=== PATIENT | female | born 1975 | race Caucasian/White ===

== ENCOUNTER 2017-02-13 08:43 | Emergency (ER) | payer BC, OTHER ==
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
--- NOTE | 2017-02-13 10:34 | XR ---
EXAMINATION TYPE: XR mandible complete DATE OF EXAM: 02/13/2017 9:53 AM COMPARISON: NONE HISTORY: Pain contusion TECHNIQUE: 5 view mandible FINDINGS: Temporomandibular joints appear normal. No acute fractures are evident. The apex appears in tact. Angles of the jaw appear intact. IMPRESSION: 1. Normal 5 view mandible.
--- NOTE | 2017-02-13 10:35 | XR ---
EXAMINATION TYPE: XR nasal bone DATE OF EXAM: 02/13/2017 9:53 AM COMPARISON: NONE HISTORY: Contusion pain and abrasion nose TECHNIQUE: 3 view nasal bone FINDINGS: No acute fractures are evident. Maxillary spine appears intact. Paranasal sinuses appear cl ear. Pleura the orbits appear normal. IMPRESSION: 1. Normal nasal bones
[2017-02-13 11:10] VITALS: RESP 16; TEMP 98.4
[2017-02-13 11:30] VITALS: BP 141/66; PULSE 60
== END 2017-02-13 11:29 | disposition home or self-care (01) ==
LOC: EC 08:43
DX: S00.33XA Contusion of nose, initial encounter (principal); S00.83XA Contusion of other part of head, initial encounter; Z87.891 Personal history of nicotine dependence; Z79.899 Other long term (current) drug therapy; Z88.6 Allergy status to analgesic agent; Z88.5 Allergy status to narcotic agent; Y08.89XA Assault by other specified means, initial encounter
CPT/HCPCS: 70110; 70160; 99283

== ENCOUNTER 2017-03-18 13:59 | Emergency (ER) | payer BC ==
[2017-03-18] MEDS ORDERED: ACETAMINOPHEN IV (For NPO) 1,000 MG in EMPTY BAG 1 BAG IVPB STA (14:20)
--- NOTE | 2017-03-18 14:21 | ED ---
General Adult HPI - General Chief complaint: Altered Mental Status Stated complaint: Altered LOC Time Seen by Provider: 03/18/17 14:01 Source: patient, EMS, RN notes reviewed Mode of arrival: EMS Limitations: altered mental status - History of Present Illness Initial comments: Patient is a 42-year-old female presenting to the emergency department by EMS. Patient is a very poor historian and offering little information. Patient is tearful however denies being anxious. Patient will not state why she is here. Patient does complain of leg pain. There was a reported fall, unknown if any injury. Further history is limited. - Related Data Home Medications Medication Instructions Recorded Confirmed Vitamin C/Biotin [Hair, Skin and 1 tab PO DAILY 02/13/17 03/18/17 Nails] Previous Rx's Medication Instructions Recorded Amoxicillin 500 mg PO Q8H #30 capsule 03/18/17 levETIRAcetam [Keppra] 500 mg PO Q12HR #60 tab 03/18/17 Allergies Allergy/AdvReac Type Severity Reaction Status Date / Time aspirin AdvReac Severe BLOODY NOSE Verified 03/18/17 15:07 codeine AdvReac Swelling Verified 03/18/17 15:07 Review of Systems ROS Statement: Those systems with pertinent positive or pertinent negative responses have been documented in the HPI. ROS Other: All systems not noted in ROS Statement are negative. Limitations: ROS unobtainable due to patients medical condition Past Medical History Past Medical History: Thyroid Disorder History of Any Multi-Drug Resistant Organisms: None Reported Past Surgical History: No Surgical Hx Reported Past Psychological History: No Psychological Hx Reported Smoking Status: Former smoker Past Alcohol Use History: None Reported Past Drug Use History: None Reported General Exam Limitations: altered mental status General appearance: alert, anxious Head exam: Present: atraumatic Eye exam: Present: normal appearance, PERRL, EOMI ENT exam: Present: normal oropharynx Neck exam: Present: normal inspection. Absent: tenderness, meningismus Respiratory exam: Present: normal lung sounds bilaterally Cardiovascular Exam: Present: regular rate, normal rhythm GI/Abdominal exam: Present: soft. Absent: distended, tenderness, guarding, rebound, rigid Extremities exam: Present: normal inspection, tenderness (Diffuse bilateral legs ). Absent: pedal edema Back exam: Present: normal inspection. Absent: tenderness Neurological exam: Present: alert, other (Tearful. Difficulty following commands. No focal deficits.) Expanded Cranial nerves: EOM's Intact: Normal Motor strength exam: RUE: 5, LUE: 5, RLE: 5, LLE: 5 Psychiatric exam: Present: anxious Skin exam: Present: normal color. Absent: rash Course Vital Signs 03/18/17 03/18/17 14:05 15:20 Temperature 102.5 F H 101.7 F H Pulse Rate 99 70 Respiratory 18 16 Rate Blood Pressure 113/59 119/75 O2 Sat by Pulse 95 95 Oximetry EKG Findings - EKG Comments: EKG Findings:: Normal sinus rhythm 95. [place] 168. QRS 98. QT 352. QTC 442. Normal axis. Normal QRS. No acute ST change. Medical Decision Making - Medical Decision Making Patient reevaluated and significantly improved. Patient is alert and oriented 3. Still no meningismus. Patient states she had a seizure earlier. Patient was unaware of having a fever however does admit to having sinus problems for several days. Patient complains of sinus congestion and feels that is why she has a fever. Patient states he feels much better and is comfortable with discharge. Patient was updated on results and need for follow-up. Patient states she was recently taken off of her Keppra because she has not had a seizure a long period of time. Patient states she used to be on Keppra for seizures. This will be restarted. - Lab Data Result diagrams: 03/18/17 14:43 03/18/17 14:43 Lab Results 03/18/17 03/18/17 03/18/17 Range/Units 14:28 14:43 14:43 WBC 11.0 H (3.8-10.6) k/uL RBC 3.96 (3.80-5.40) m/uL Hgb 12.1 (11.4-16.0) gm/dL Hct 35.3 (34.0-46.0) % MCV 89.2 (80.0-100.0) fL MCH 30.6 (25.0-35.0) pg MCHC 34.3 (31.0-37.0) g/dL RDW 15.6 H (11.5-15.5) % Plt Count 211 (150-450) k/uL Neutrophils % 89 % Lymphocytes % 7 % Monocytes % 3 % Eosinophils % 1 % Basophils % 0 % Neutrophils # 9.7 H (1.3-7.7) k/uL Lymphocytes # 0.7 L (1.0-4.8) k/uL Monocytes # 0.3 (0-1.0) k/uL Eosinophils # 0.1 (0-0.7) k/uL Basophils # 0.0 (0-0.2) k/uL Sodium (137-145) mmol/L Potassium (3.5-5.1) mmol/L Chloride (98-107) mmol/L Carbon Dioxide (22-30) mmol/L Anion Gap mmol/L BUN (7-17) mg/dL Creatinine (0.52-1.04) mg/dL Est GFR (MDRD) Af Amer (>60 ml/min/1.73 sqM) Est GFR (MDRD) Non-Af (>60 ml/min/1.73 sqM) Glucose (74-99) mg/dL Plasma Lactic Acid [place] (0.7-2.0) mmol/L Calcium (8.4-10.2) mg/dL Total Bilirubin (0.2-1.3) mg/dL AST (14-36) U/L ALT (9-52) U/L Alkaline Phosphatase (38-126) U/L Total Creatine Kinase 776 H (30-135) U/L CK-MB (CK-2) 1.9 (0.0-2.4) ng/mL CK-MB (CK-2) Rel Index 0.2 Troponin I <0.012 (0.000-0.034) ng/mL Total Protein (6.3-8.2) g/dL Albumin (3.5-5.0) g/dL Urine Color Yellow Urine Appearance Clear (Clear) Urine pH 5.5 (5.0-8.0) Ur Specific [place] 1.021 (1.001-1.035) Urine Protein Trace H (Negative) Urine Glucose (UA) Negative (Negative) Urine Ketones Negative (Negative) Urine Blood Small H (Negative) Urine Nitrite Negative (Negative) Urine Bilirubin Negative (Negative) Urine Urobilinogen <2.0 (<2.0) mg/dL Ur Leukocyte Esterase Small H (Negative) Urine RBC 3 (0-5) /hpf Urine WBC <1 (0-5) /hpf Ur Squamous Epith Cells 1 (0-4) /hpf Urine Bacteria Rare H (None) /hpf Urine Mucus Rare H (None) /hpf Influenza Type A RNA (Not Detectd) Influenza Type B (PCR) (Not Detectd) 03/18/17 03/18/17 03/18/17 Range/Units 14:43 14:43 15:29 WBC (3.8-10.6) k/uL RBC (3.80-5.40) m/uL Hgb (11.4-16.0) gm/dL Hct (34.0-46.0) % MCV (80.0-100.0) fL MCH (25.0-35.0) pg MCHC (31.0-37.0) g/dL RDW (11.5-15.5) % Plt Count (150-450) k/uL Neutrophils % % Lymphocytes % % Monocytes % % Eosinophils % % Basophils % % Neutrophils # (1.3-7.7) k/uL Lymphocytes # (1.0-4.8) k/uL Monocytes # (0-1.0) k/uL Eosinophils # (0-0.7) k/uL Basophils # (0-0.2) k/uL Sodium 141 (137-145) mmol/L Potassium 3.6 (3.5-5.1) mmol/L Chloride 103 (98-107) mmol/L Carbon Dioxide 24 (22-30) mmol/L Anion Gap 14 mmol/L BUN 10 (7-17) mg/dL Creatinine 1.11 H (0.52-1.04) mg/dL Est GFR (MDRD) Af Amer >60 (>60 ml/min/1.73 sqM) Est GFR (MDRD) Non-Af 54 (>60 ml/min/1.73 sqM) Glucose 98 (74-99) mg/dL Plasma Lactic Acid [place] 1.4 (0.7-2.0) mmol/L Calcium 9.0 (8.4-10.2) mg/dL Total Bilirubin 1.1 (0.2-1.3) mg/dL AST 49 H (14-36) U/L ALT 32 (9-52) U/L Alkaline Phosphatase 86 (38-126) U/L Total Creatine Kinase (30-135) U/L CK-MB (CK-2) (0.0-2.4) ng/mL CK-MB (CK-2) Rel Index Troponin I (0.000-0.034) ng/mL Total Protein 8.4 H (6.3-8.2) g/dL Albumin 4.7 (3.5-5.0) g/dL Urine Color Urine Appearance (Clear) Urine pH (5.0-8.0) Ur Specific [place] (1.001-1.035) Urine Protein (Negative) Urine Glucose (UA) (Negative) Urine Ketones (Negative) Urine Blood (Negative) Urine Nitrite (Negative) Urine Bilirubin (Negative) Urine Urobilinogen (<2.0) mg/dL Ur Leukocyte Esterase (Negative) Urine RBC (0-5) /hpf Urine WBC (0-5) /hpf Ur Squamous Epith Cells (0-4) /hpf Urine Bacteria (None) /hpf Urine Mucus (None) /hpf Influenza Type A RNA Not Detected (Not Detectd) Influenza Type B (PCR) Not Detected (Not Detectd) - Radiology Data Radiology results: report reviewed (Computed tomography scan of the brain shows no acute process. Computed tomography scan the cervical spine shows mild degenerative change.), image reviewed (Chest x-ray shows no acute process) Disposition Clinical Impression: Acute sinusitis, Seizure Disposition: HOME SELF-CARE Condition: Stable Instructions: Sinusitis (ED), Recurrent Seizures in Adults (ED) Additional Instructions: Please follow-up with neurology and primary care physician in the beginning of the week. Return for change in mental status, increased seizures, fevers, difficulty breathing, worsening or changing symptoms or other concerns. Prescriptions: Amoxicillin 500 mg PO Q8H #30 capsule levETIRAcetam [Keppra] 500 mg PO Q12HR #60 tab Referrals: Ebony Perales MD [STAFF PHYSICIAN] - 1-2 days Reanna Nava MD [STAFF PHYSICIAN] - 1-2 days Time of Disposition: 16:00
[2017-03-18] MEDS: SODIUM CHLORIDE 0.9% 500 ML IV SCH ×2 (14:34→14:35)
[2017-03-18 14:53] LABS: Appearance,Urine Clear (Clear); Bacteria,Urine Rare /hpf; Bilirubin,Urine Negative (Negative); Glucose,Urine (UA) Negative (Negative); Ketones,Urine Negative (Negative); Leukocyte Esterase,Urine Small (Negative); Mucus,Urine Rare /hpf; Nitrite,Urine Negative (Negative); PH, Urine 5.5 (5.0-8.0); Particle Count 3773; Protein,Urine Trace (Negative); RBC,Urine 3 /hpf (0-5); Specific Gravity,Urine 1.021 (1.001-1.035); Squamous Epithelial Cell,Urine 1 /hpf (0-4); UA Billing (MACRO vs. MICRO) MICRO; Urobilinogen,Urine <2.0 mg/dL (<2.0); WBC,Urine <1 /hpf (0-5)
[2017-03-18 14:55] LABS: Basophils % (A) 0 %; CH 31.2; CHCM 35.2; Eosinophils # (A) 0.1 k/uL (0-0.7); Eosinophils % (A) 1 %; HCT 35.3 % (34.0-46.0); HDW 2.92; HGB 12.1 gm/dL (11.4-16.0); Luc # (Auto) 0.08; Luc % (Auto) 1; Lymphocytes # (A) 0.7 k/uL (1.0-4.8); Lymphocytes % (A) 7 %; MCH 30.6 pg (25.0-35.0); MCHC 34.3 g/dL (31.0-37.0); MCV 89.2 fL (80.0-100.0); Mean Platelet Volume 6.9; Monocytes # (A) 0.3 k/uL (0-1.0); Monocytes % (A) 3 %; Neutrophils # (A) 9.7 k/uL (1.3-7.7); Neutrophils % (A) 89 %; RBC 3.96 m/uL (3.80-5.40); RDW 15.6 % (11.5-15.5); WBC (Perox) 11.21
[2017-03-18 15:04] LABS: ALT 32 U/L (9-52); AST 49 U/L (14-36); Alkaline Phosphatase 86 U/L (38-126); Anion Gap 14 mmol/L; Blood Urea Nitrogen 10 mg/dL (7-17); Carbon Dioxide 24 mmol/L (22-30); Chloride 103 mmol/L (98-107); Glucose 98 mg/dL (74-99); Non-African American GFR(MDRD) 54 (>60 ml/min/1.73 sqM); Potassium 3.6 mmol/L (3.5-5.1); Sodium 141 mmol/L (137-145); Total Bilirubin 1.1 mg/dL (0.2-1.3); Total Protein 8.4 g/dL (6.3-8.2)
[2017-03-18 15:13] LABS: Creatine Kinase 776 U/L (30-135)
[2017-03-18 15:26] LABS: Creatine Kinase MB 1.9 ng/mL (0.0-2.4); Troponin I <0.012 ng/mL (0.000-0.034)
--- NOTE | 2017-03-18 15:35 | CT ---
EXAMINATION TYPE: CT brain cspine wo con DATE OF EXAM: 03/18/2017 3:02 PM COMPARISON: 12/02/2015 HISTORY: Fall, possible seizure. Hx seizures. CT DLP: 1400.6 mGycm, Automated exposure control for dose reduction was used. CONTRAST: Patient injected with 0 mL of Omnipaque 300. CT of the brain is performed utilizing 3 mm thick sections through the posterior fossa and 3 mm thick sections through the remaining calvarium. Study is performed within 24 hours of arrival to the hospital. No abnormal hyperdensity is present to suggest an acute intracranial hemorrhage. No mass lesion is evident. No acute infarcts are evident. Ventricles and sulci are appropriate for the patient age. Paranasal sinuses and mastoid air cells within the [id number] are clear. IMPRESSIONS: 1. Normal CT brain. CT cervical spine. COMPARISON: None CT of the cervical spine is performed in the axial plane at 2 mm thick sections. Reconstructed image s in the coronal, and sagittal plane are reviewed on the computer. No acute fractures are evident. Vertebral body alignment is normal. Posterior endplate spurring is noted C3-4 C4-5 C5-6. No spinal ca nal stenosis is present. Some uncovertebral joint hypertrophy is foraminal narrowing present C4-5 C5- 6. Disc heights are preserved. Vertebral body heights are preserved. No spinal canal stenosis is evident. No neural foraminal stenosis is evident. IMPRESSIONS: 1. Mild degenerative changes cervical spine.
[2017-03-18] MEDS ORDERED: levETIRAcetam 500 MG TAB PO STA (15:48)
--- NOTE | 2017-03-18 15:57 | XR ---
EXAMINATION TYPE: XR chest 2V DATE OF EXAM: 03/18/2017 3:06 PM COMPARISON: 11/18/2009 INDICATION: Fever TECHNIQUE: Single frontal view of the chest is obtained. FINDINGS: The heart size is normal. The pulmonary vasculature is normal. The lungs are clear. Degree of inspiration is slightly limited. IMPRESSION: 1. No acute pulmonary process.
[2017-03-18 16:16] VITALS: BP 111/65; PULSE 72; RESP 18; TEMP 101
== END 2017-03-18 16:10 | disposition home or self-care (01) ==
LOC: EC 13:59
DX: J01.90 Acute sinusitis, unspecified (principal); R56.9 Unspecified convulsions; M47.812 Spondylosis without myelopathy or radiculopathy, cervical region; Z79.899 Other long term (current) drug therapy; Z88.5 Allergy status to narcotic agent; Z88.6 Allergy status to analgesic agent; Z87.891 Personal history of nicotine dependence
CPT/HCPCS: 99285 ×2; 96365 ×2; 36415; 93005; 80053; 82550; 82553; 83605; 84484; 85025; 81001; 87040; 87086; 87502; 71020; 72125; 70450; J0131

== ENCOUNTER 2017-05-29 06:49 | Emergency (ER) | payer BC ==
[2017-05-29] MEDS ORDERED: diphenhydrAMINE 50 MG/ML 1 ML VIAL IVP STA (07:33)
[2017-05-29] MEDS ORDERED: ONDANSETRON 4 MG/2 ML VIAL IVP STA (07:33)
[2017-05-29] MEDS ORDERED: KETOROLAC 60 MG/2 ML VIAL IVP STA (07:33)
[2017-05-29] MEDS ORDERED: SODIUM CHLORIDE 0.9% 1,000 ML IV ONE (07:34)
--- NOTE | 2017-05-29 07:53 | ED ---
General Adult HPI - General Chief complaint: Headache Stated complaint: Headache x 2 days Time Seen by Provider: 05/29/17 07:00 Source: patient, RN notes reviewed Mode of arrival: ambulatory Limitations: no limitations - History of Present Illness Initial comments: This is a 42-year-old female presents emergency Department complaining of a headache which started yesterday at noon. Patient states that her headaches in the past that are similar. Patient states she is also mildly nauseated and she has some photophobia. Patient denies any vomiting. Patient denies any recent fever chills per patient denies any neck pain or stiffness. Patient states this headache is similar to that when she's had in the past. Patient denies any lightheadedness dizziness or near syncopal episode. Patient denies any numbness or weakness. Patient denies any chest pain palpitations difficulty breathing. Patient denies any abdominal pain. - Related Data Home Medications Medication Instructions Recorded Confirmed Vitamin C/Biotin [Hair, Skin and 1 tab PO BID 05/29/17 05/29/17 Nails] Allergies Allergy/AdvReac Type Severity Reaction Status Date / Time aspirin AdvReac Severe BLOODY NOSE Verified 05/29/17 08:16 codeine AdvReac Swelling Verified 05/29/17 08:16 Review of Systems ROS Statement: Those systems with pertinent positive or pertinent negative responses have been documented in the HPI. ROS Other: All systems not noted in ROS Statement are negative. Past Medical History Past Medical History: Seizure Disorder, Thyroid Disorder History of Any Multi-Drug Resistant Organisms: None Reported Past Surgical History: No Surgical Hx Reported Past Psychological History: No Psychological Hx Reported Smoking Status: Former smoker Past Alcohol Use History: None Reported Past Drug Use History: None Reported General Exam - General Exam Comments Initial Comments: GENERAL: Patient is well-developed and well-nourished. Patient is nontoxic and well- hydrated and is in mild distress. ENT: Neck is soft and supple. No significant lymphadenopathy is noted. Oropharynx is clear. Moist mucous membranes. Neck has full range of motion without eliciting any pain. EYES: The sclera were anicteric and conjunctiva were pink and moist. Extraocular movements were intact and pupils were equal round and reactive to light. Eyelids were unremarkable. PULMONARY: Unlabored respirations. Good breath sounds bilaterally. No audible rales rhonchi or wheezing was noted. CARDIOVASCULAR: There is a regular rate and rhythm without any murmurs gallops or rubs. ABDOMEN: Soft and nontender with normal bowel sounds. SKIN: Skin is clear with no lesions or rashes and otherwise unremarkable. NEUROLOGIC: Patient is alert and oriented x3. Cranial nerves II through XII are grossly intact. Motor and sensory are also intact. Normal speech, volume and content. Symmetrical smile. MUSCULOSKELETAL: Normal extremities with adequate strength and full range of motion. No lower extremity swelling or edema. No calf tenderness. LYMPHATICS: No significant lymphadenopathy is noted PSYCHIATRIC: Normal psychiatric evaluation. Normal interpersonal interactions appears functionally intact in deals appropriately with others. No signs of depression. Limitations: no limitations Course Vital Signs 05/29/17 05/29/17 06:53 07:59 Temperature 98.4 F Pulse Rate 59 L 66 Respiratory 18 18 Rate Blood Pressure 122/78 125/78 O2 Sat by Pulse 100 98 Oximetry Medical Decision Making - Medical Decision Making Patient received Toradol Zofran and Benadryl the ER for headache she states improved her headache and she is only a 45 out of 10 at this time. When I walked back in the room to reevaluate the patient she was sleeping. Patient has had 4 CT scans for brain and one MRI in the last 2 years. Disposition Clinical Impression: Headache Disposition: HOME SELF-CARE Instructions: Acute Headache (ED) Referrals: None,Stated [Primary Care Provider] - 1-2 days Time of Disposition: 08:20
[2017-05-29 08:27] VITALS: BP 109/73; PULSE 60; RESP 15; TEMP 97.6
== END 2017-05-29 08:56 | disposition home or self-care (01) ==
LOC: EC 06:49
DX: R51 Headache (principal); H53.149 Visual discomfort, unspecified; R11.0 Nausea; Z87.891 Personal history of nicotine dependence; Z79.899 Other long term (current) drug therapy; Z88.5 Allergy status to narcotic agent; Z88.6 Allergy status to analgesic agent
CPT/HCPCS: 99283; 96374; 96375 ×2; 96361; J1200; J2405; J1885

== ENCOUNTER 2017-06-19 07:26 | Emergency (ER) | payer BC ==
[2017-06-19] MEDS ORDERED: ONDANSETRON 4 MG/2 ML VIAL IVP STA (07:55)
[2017-06-19] MEDS ORDERED: SODIUM CHLORIDE 0.9% 1,000 ML IV STA ×2 (07:55)
[2017-06-19] MEDS ORDERED: KETOROLAC 30 MG/ML 1 ML VIAL IVP STA (07:56)
--- NOTE | 2017-06-19 08:00 | ED ---
General Adult HPI - General Chief complaint: Recheck/Abnormal Lab/Rx Stated complaint: posss Syncope Time Seen by Provider: 06/19/17 07:50 Source: EMS Mode of arrival: EMS Limitations: no limitations - History of Present Illness Initial comments: This 42-year-old white female presents by EMS after she apparently almost passed out at work. She states that she cannot remember exactly what happened and may have passed out but is not sure. She apparently started work at 5 AM. Approximately one hour later her symptoms started. She states that she has a history of seizure disorder but did not have a seizure that she is aware of. 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 She denies any problems with eating or drinking recently but is unsure if she is dehydrated. She denies any possibility of as she's had a tubal ligation. She denies any fevers or chills. She has had some mild dizziness and mild headache and mild nausea. She denies any abdominal pain. No other complaints or modifying factors. - Related Data Home Medications Medication Instructions Recorded Confirmed Vitamin C/Biotin [Hair, Skin and 1 tab PO BID 05/29/17 06/19/17 Nails] Allergies Allergy/AdvReac Type Severity Reaction Status Date / Time aspirin AdvReac Severe BLOODY NOSE Verified 06/19/17 08:45 codeine AdvReac Swelling Verified 06/19/17 08:45 Review of Systems ROS Statement: Those systems with pertinent positive or pertinent negative responses have been documented in the HPI. ROS Other: All systems not noted in ROS Statement are negative. Past Medical History Past Medical History: Seizure Disorder, Thyroid Disorder History of Any Multi-Drug Resistant Organisms: None Reported Past Surgical History: No Surgical Hx Reported Past Psychological History: No Psychological Hx Reported Smoking Status: Former smoker Past Alcohol Use History: None Reported Past Drug Use History: None Reported General Exam - General Exam Comments Initial Comments: GENERAL: The patient is well nourished and well hydrated. VITAL SIGNS: Heart rate, blood pressure, respiratory rate reviewed as recorded in nurse's notes. EYES: Pupils are round and reactive. Extraocular movements are intact. No conjunctival / lid redness or swelling. ENT: No external evidence of injury, swelling, or ecchymosis. Airway is patent. Throat is clear. NECK: Nontender. No swelling or evidence of injury. No subcutaneous emphysema. Trachea is midline. No thyroid mass. HEART: Regular rate and rhythm. Good peripheral pulses. LUNGS/CHEST: Breath sounds clear and equal bilaterally. No rales, rhonchi, or wheezes. No ecchymosis, subcutaneous emphysema, or tenderness. ABDOMEN: Abdomen soft without tenderness. No palpable masses or organomegaly. No peritoneal signs. No abdominal wall swelling or ecchymosis. EXTREMITIES: No extremity tenderness. Normal muscle tone and function. No thoracolumbar tenderness. NEUROLOGIC: Sensation is grossly intact. Cranial nerve exam reveals face is symmetrical, tongue is midline, speech is clear. SKIN: No abrasions or ecchymosis is noted. No induration or masses noted. PSYCHIATRIC: Alert and oriented. Appropriate behavior and judgment. Limitations: no limitations Course Vital Signs 06/19/17 06/19/17 06/19/17 07:31 07:35 09:30 Temperature 100 F H Pulse Rate 70 66 64 Respiratory 20 18 20 Rate Blood Pressure 113/71 113/71 104/73 O2 Sat by Pulse 99 97 98 Oximetry 06/19/17 06/19/17 10:13 10:25 Temperature 98 F 98 F Pulse Rate 60 60 Respiratory 18 18 Rate Blood Pressure 104/62 104/62 O2 Sat by Pulse 97 97 Oximetry Medical Decision Making - Medical Decision Making The patient was seen and examined. All diagnostics were reviewed. She did receive an IV with ample IV fluid hydration, Toradol, and Zofran. EKG shows a normal sinus rhythm with no acute ST-T wave changes identified. The DE intervals 182, QRS duration is 86, and the QTc interval is 418. The ventricular rate is 60. The patient's labs are reviewed and it does show that she has some mild anemia. Overall, the exact reason of her symptoms are not definitively determine but it is felt as though she likely has a degree of dehydration and some mild heat exhaustion. She feels much improved after the fluids and medications stating that she feels normal at this time. It is felt as though she is stable for discharge and leaves in no distress. She will be given a work note off for the remainder of this shift but she can return tomorrow. She is instructed to increase her fluid hydration. She leaves in no identifiable distress. - Lab Data Result diagrams: 06/19/17 08:06 06/19/17 08:06 Lab Results 06/19/17 06/19/17 Range/Units 08:06 08:06 WBC 6.1 (3.8-10.6) k/uL RBC 3.67 L (3.80-5.40) m/uL Hgb 11.3 L (11.4-16.0) gm/dL Hct 32.6 L (34.0-46.0) % MCV 89.0 (80.0-100.0) fL MCH 30.9 (25.0-35.0) pg MCHC 34.8 (31.0-37.0) g/dL RDW 13.7 (11.5-15.5) % Plt Count 216 (150-450) k/uL Neutrophils % 60 % Lymphocytes % 31 % Monocytes % 4 % Eosinophils % 3 % Basophils % 1 % Neutrophils # 3.7 (1.3-7.7) k/uL Lymphocytes # 1.9 (1.0-4.8) k/uL Monocytes # 0.2 (0-1.0) k/uL Eosinophils # 0.2 (0-0.7) k/uL Basophils # 0.0 (0-0.2) k/uL Sodium 140 (137-145) mmol/L Potassium 4.0 (3.5-5.1) mmol/L Chloride 107 (98-107) mmol/L Carbon Dioxide 24 (22-30) mmol/L Anion Gap 9 mmol/L BUN 10 (7-17) mg/dL Creatinine 0.96 (0.52-1.04) mg/dL Est GFR (MDRD) Af Amer >60 (>60 ml/min/1.73 sqM) Est GFR (MDRD) Non-Af >60 (>60 ml/min/1.73 sqM) Glucose 81 (74-99) mg/dL Calcium 8.8 (8.4-10.2) mg/dL Total Bilirubin 0.5 (0.2-1.3) mg/dL AST 40 H (14-36) U/L ALT 34 (9-52) U/L Alkaline Phosphatase 62 (38-126) U/L Total Protein 7.7 (6.3-8.2) g/dL Albumin 4.2 (3.5-5.0) g/dL Disposition Clinical Impression: Syncope, Heat exhaustion, Anemia, Dehydration Disposition: HOME SELF-CARE Condition: Good Instructions: Dehydration (ED), Heat Exhaustion (ED), Syncope (ED), Anemia (ED) Referrals: Dorinda Pierce MD [Primary Care Provider] - 1-2 days Time of Disposition: 10:07
[2017-06-19 08:16] LABS: Basophils % (A) 1 %; CH 30.9; CHCM 34.9; Eosinophils # (A) 0.2 k/uL (0-0.7); Eosinophils % (A) 3 %; HCT 32.6 % (34.0-46.0); HDW 2.99; HGB 11.3 gm/dL (11.4-16.0); Luc % (Auto) 2; Lymphocytes # (A) 1.9 k/uL (1.0-4.8); Lymphocytes % (A) 31 %; MCH 30.9 pg (25.0-35.0); MCHC 34.8 g/dL (31.0-37.0); Mean Platelet Volume 7.4; Monocytes # (A) 0.2 k/uL (0-1.0); Monocytes % (A) 4 %; Neutrophils # (A) 3.7 k/uL (1.3-7.7); Neutrophils % (A) 60 %; RBC 3.67 m/uL (3.80-5.40); RDW 13.7 % (11.5-15.5); WBC 6.1 k/uL (3.8-10.6); WBC (Perox) 6.28
[2017-06-19 08:32] LABS: ALT 34 U/L (9-52); AST 40 U/L (14-36); Alkaline Phosphatase 62 U/L (38-126); Anion Gap 9 mmol/L; Blood Urea Nitrogen 10 mg/dL (7-17); Calcium 8.8 mg/dL (8.4-10.2); Carbon Dioxide 24 mmol/L (22-30); Chloride 107 mmol/L (98-107); Glucose 81 mg/dL (74-99); Non-African American GFR(MDRD) >60 (>60 ml/min/1.73 sqM); Sodium 140 mmol/L (137-145); Total Bilirubin 0.5 mg/dL (0.2-1.3); Total Protein 7.7 g/dL (6.3-8.2)
[2017-06-19 10:15] VITALS: BP 104/62; PULSE 60; RESP 18; TEMP 98
== END 2017-06-19 10:41 | disposition home or self-care (01) ==
LOC: EC 07:26
DX: R55 Syncope and collapse (principal); E86.0 Dehydration; D64.9 Anemia, unspecified; Z87.891 Personal history of nicotine dependence; Z79.899 Other long term (current) drug therapy; Z88.5 Allergy status to narcotic agent; Z88.6 Allergy status to analgesic agent; X30.XXXA Exposure to excessive natural heat, initial encounter
CPT/HCPCS: 36415; 93005; 80053; 85025; 99284; 96374; 96375; 96361 ×2; J2405; J1885

== ENCOUNTER 2017-10-08 06:18 | Emergency (ER) | payer BC ==
[2017-10-08 06:24] VITALS: RESP 16
[2017-10-08] MEDS ORDERED: ONDANSETRON 4 MG/2 ML VIAL IVP STA (06:30)
[2017-10-08] MEDS ORDERED: KETOROLAC 30 MG/ML 1 ML VIAL IVP STA (06:30)
--- NOTE | 2017-10-08 06:48 | ED ---
Headache HPI - General Source: patient, RN notes reviewed Mode of arrival: ambulatory Limitations: no limitations - History of Present Illness MD Complaint: headache <Elmer Wyatt - Last Filed: 10/08/17 06:45> <Jb Viera - Last Filed: 10/08/17 08:05> - General Chief Complaint: Headache Stated Complaint: migraine Time Seen by Provider: 10/08/17 06:24 - History of Present Illness Initial Comments: This is a 42-year-old female history of migraine headaches and states she had the onset of her headache this morning or 1 AM. She states it was about 8/10 severity. She states she took some Motrin get somewhat better but then after going to work he got worse again. So but again at this time she has some nausea she states is bitemporal not demonstrating any complaints of fevers chills sweats earaches sore throat or rhinorrhea. No focal deficits to her upper or lower extremities she does have some photophobia. (Elmer Wyatt) - Related Data Home Medications Medication Instructions Recorded Confirmed No Known Home Medications [No 10/08/17 10/08/17 Known Home Medications] Allergies Allergy/AdvReac Type Severity Reaction Status Date / Time aspirin AdvReac Severe BLOODY Verified 10/08/17 07:23 NOSE/Itching codeine AdvReac Swelling/It Verified 10/08/17 07:23 afshan Review of Systems ROS Other: All systems not noted in ROS Statement are negative. <Elmer Wyatt - Last Filed: 10/08/17 06:45> ROS Other: All systems not noted in ROS Statement are negative. <Jb Viera - Last Filed: 10/08/17 08:05> ROS Statement: Those systems with pertinent positive or pertinent negative responses have been documented in the HPI. Past Medical History Past Medical History: Seizure Disorder, Thyroid Disorder History of Any Multi-Drug Resistant Organisms: None Reported Past Surgical History: No Surgical Hx Reported Past Psychological History: No Psychological Hx Reported Smoking Status: Never smoker Past Alcohol Use History: None Reported Past Drug Use History: None Reported <Elmer Wyatt - Last Filed: 10/08/17 06:45> General Exam Limitations: no limitations General appearance: alert, in no apparent distress Head exam: Present: atraumatic, normocephalic, normal inspection, other (Some mild times palpation over the temporal scalp no step-off or crepitation) Eye exam: Present: normal appearance, PERRL, EOMI. Absent: scleral icterus, conjunctival injection, periorbital swelling ENT exam: Present: normal exam, mucous membranes moist Neck exam: Present: normal inspection, full ROM. Absent: tenderness, meningismus, lymphadenopathy Respiratory exam: Present: normal lung sounds bilaterally. Absent: respiratory distress, wheezes, rales, rhonchi, stridor Cardiovascular Exam: Present: regular rate, normal rhythm, normal heart sounds. Absent: systolic murmur, diastolic murmur, rubs, gallop, clicks GI/Abdominal exam: Present: normal bowel sounds. Absent: distended, tenderness , guarding, rebound, rigid Extremities exam: Present: normal inspection, full ROM, normal capillary refill. Absent: tenderness, pedal edema, joint swelling, calf tenderness Back exam: Present: normal inspection Neurological exam: Present: alert, oriented X3, CN II-XII intact Psychiatric exam: Present: normal affect, normal mood Skin exam: Present: warm, dry, intact, normal color. Absent: rash <Elmer Wyatt - Last Filed: 10/08/17 06:45> <Jb Viera - Last Filed: 10/08/17 08:05> - General Exam Comments Initial Comments: This is a well-developed well-nourished awake alert oriented x 3 female (Elmer Wyatt) Course <Elmer Wyatt - Last Filed: 10/08/17 06:45> <Jb Viera - Last Filed: 10/08/17 08:05> Vital Signs 10/08/17 06:19 Temperature 99.2 F Pulse Rate 75 Respiratory 16 Rate Blood Pressure 111/72 O2 Sat by Pulse 100 Oximetry - Reevaluation(s) Reevaluation #1: 10/08/17 06:47 The patient was noted have a slightly elevated temperature on initial presentation she states this is her normal temperature. (Elmer Wyatt) Reevaluation #2: 10/08/17 06:47 The patient's care will be endorsed to Dr. Viera who will make the final disposition (Elmer Wyatt) Medical Decision Making <Elmer Wyatt - Last Filed: 10/08/17 06:45> <Jb Viera - Last Filed: 10/08/17 08:05> - Medical Decision Making Patient reexamined and feeling much better. Patient states she does have a history of similar headaches previously with multiple evaluations. Patient has had MRI and multiple previous brain CTs. Patient is comfortable with discharge home. (Jb Viera) Disposition <Elmer Wyatt - Last Filed: 10/08/17 06:45> Time of Disposition: 08:05 <Jb Viera - Last Filed: 10/08/17 08:05> Clinical Impression: Headache Disposition: HOME SELF-CARE Condition: Stable Instructions: Acute Headache (ED) Additional Instructions: Please follow-up with your doctor in the next day or 2 for recheck. Return for weakness, uncontrolled vomiting, visual changes, fevers, worsening or change in symptoms or other concerns. Referrals: Dorinda Pierce MD [Primary Care Provider] - 1-2 days
[2017-10-08 08:16] VITALS: BP 104/76; PULSE 63; TEMP 97.9
== END 2017-10-08 08:16 | disposition home or self-care (01) ==
LOC: EC 06:18
DX: R51 Headache (principal); Z86.69 Personal history of other diseases of the nervous system and sense organs; Z88.6 Allergy status to analgesic agent; Z88.5 Allergy status to narcotic agent
CPT/HCPCS: 99283 ×2; 96374 ×2; 96375 ×2; J2405; J1885

== ENCOUNTER → 2018-05-14 | Outpatient (CLI) | payer BC ==
[2018-05-14 16:40] LABS: Appearance,Urine Cloudy (Clear); Bacteria,Urine Occasional /hpf; Bilirubin,Urine Negative (Negative); Blood,Urine Negative (Negative); Color,Urine Light Yellow; Glucose,Urine (UA) Negative (Negative); Ketones,Urine Negative (Negative); Leukocyte Esterase,Urine Large (Negative); Mucus,Urine Rare /hpf; Nitrite,Urine Negative (Negative); PH, Urine 5.5 (5.0-8.0); Protein,Urine Negative (Negative); RBC,Urine 4 /hpf (0-5); Specific Gravity,Urine 1.016 (1.001-1.035); Squamous Epithelial Cell,Urine 3 /hpf (0-4); Urobilinogen,Urine <2.0 mg/dL (<2.0); WBC,Urine 31 /hpf (0-5)
[2018-05-14 16:42] LABS: Basophils # (A) 0.1 k/uL (0-0.2); Basophils % (A) 1 %; Eosinophils # (A) 0.4 k/uL (0-0.7); Eosinophils % (A) 6 %; HCT 28.4 % (34.0-46.0); HGB 9.3 gm/dL (11.4-16.0); Lymphocytes # (A) 2.1 k/uL (1.0-4.8); Lymphocytes % (A) 30 %; MCH 28.3 pg (25.0-35.0); MCHC 32.6 g/dL (31.0-37.0); MCV 86.8 fL (80.0-100.0); Mean Platelet Volume 7.2; Monocytes # (A) 0.3 k/uL (0-1.0); Monocytes % (A) 5 %; Neutrophils # (A) 3.9 k/uL (1.3-7.7); Neutrophils % (A) 56 %; Platelet Count 225 k/uL (150-450); RBC 3.27 m/uL (3.80-5.40); RDW 15.2 % (11.5-15.5)
[2018-05-14 16:56] LABS: ALT 34 U/L (9-52); AST 48 U/L (14-36); Albumin 4.5 g/dL (3.5-5.0); Alkaline Phosphatase 63 U/L (38-126); Anion Gap 7 mmol/L; Blood Urea Nitrogen 14 mg/dL (7-17); Calcium 9.6 mg/dL (8.4-10.2); Carbon Dioxide 28 mmol/L (22-30); Chloride 105 mmol/L (98-107); Cholesterol 234 mg/dL (<200); Glucose 82 mg/dL (74-99); HDL Cholesterol 48 mg/dL (40-60); LDL Cholesterol,Calculated 130 mg/dL (0-99); Potassium 4.1 mmol/L (3.5-5.1); Sodium 140 mmol/L (137-145); Total Bilirubin 0.4 mg/dL (0.2-1.3); Total Protein 8.1 g/dL (6.3-8.2); Triglycerides 278 mg/dL (<150)
[2018-05-14 17:13] LABS: HCG,Quantitative Serum <2.4 mIU/mL
[2018-05-14 22:33] LABS: T4, Free (Free Thyroxine) 0.14 ng/dL (0.78-2.19)
[2018-05-15 01:30] LABS: Hemoglobin A1C 5.4 % (4.0-6.0)
[2018-05-15 02:13] LABS: Iron Saturation 7.35 (12.00-45.00)
[2018-05-15 02:22] LABS: Progesterone <0.2 ng/mL
[2018-05-15 03:11] LABS: HIV AB P24 Non-Reactive (Non-Reactive); HIV P24 AG Non-Reactive (Non-Reactive)
[2018-05-15 03:28] LABS: Hepatitis C IgG Antibody Non-Reactive (Non-Reactive)
== END | disposition home or self-care (01) ==
LOC: LABWHC1 16:02
PROVIDERS: ATTEND Family Medicine
DX: Z00.00 Encounter for general adult medical examination without abnormal findings (principal); N93.9 Abnormal uterine and vaginal bleeding, unspecified; Z11.3 Encounter for screening for infections with a predominantly sexual mode of transmission
CPT/HCPCS: 36415; 80053; 80061; 81001; 82672; 82728; 83001; 83002; 83036; 83540; 83550; 84144; 84146; 84439; 84443; 84702; 85025; 86780; 86803; 87340; 87390

== ENCOUNTER 2018-10-09 03:21 | Emergency (ER) | payer BC ==
[2018-10-09 03:35] VITALS: TEMP 98.4
[2018-10-09] MEDS ORDERED: SODIUM CHLORIDE 0.9% 1,000 ML IV STA (03:54)
--- NOTE | 2018-10-09 03:57 | ED ---
General Adult HPI - General Chief complaint: Seizure Stated complaint: fell yesterday after seizure Time Seen by Provider: 10/09/18 03:42 Source: patient, RN notes reviewed, old records reviewed Mode of arrival: ambulatory Limitations: no limitations - History of Present Illness Initial comments: 33-year-old female history seizure disorder presents for evaluation of headache after seizure that occurred yesterday. Patient states she had a generalized seizure uncertain of the duration. She did fall out of bed and hit her forehead on a dresser. She has recurrent seizure disorder and was previously on Keppra although her neurologist has taken off this medication at this point. She is presenting because she does not feel well, she has some mild nausea. Mild headache. She states she does have symptoms similar to this after her seizures however they don't last this long. Patient denies any focal numbness or weakness. Denies vision changes. Denies chest pain. Denies cough or URI symptoms. Denies dysuria. - Related Data Home Medications Medication Instructions Recorded Confirmed Ferrous Sulfate [Feosol] 325 mg PO DAILY 10/09/18 10/09/18 Levothyroxine Sodium [Synthroid] 100 mcg PO DAILY 10/09/18 10/09/18 Previous Rx's Medication Instructions Recorded Sulfamethox-Tmp 800-160Mg [Bactrim 1 tab PO Q12HR #20 tab 10/09/18 DS 800-160 mg] levETIRAcetam [Keppra] 500 mg PO Q12HR #30 tab 10/09/18 Allergies Allergy/AdvReac Type Severity Reaction Status Date / Time aspirin AdvReac Severe BLOODY Verified 10/08/17 07:23 NOSE/Itching codeine AdvReac Swelling/It Verified 10/08/17 07:23 afshan Review of Systems ROS Statement: Those systems with pertinent positive or pertinent negative responses have been documented in the HPI. ROS Other: All systems not noted in ROS Statement are negative. Past Medical History Past Medical History: Seizure Disorder, Thyroid Disorder History of Any Multi-Drug Resistant Organisms: None Reported Past Surgical History: Cholecystectomy Past Psychological History: No Psychological Hx Reported Smoking Status: Never smoker Past Alcohol Use History: None Reported Past Drug Use History: None Reported General Exam Limitations: no limitations General appearance: alert, in no apparent distress Head exam: Present: normocephalic. Absent: atraumatic (Mild soft tissue swelling of the forehead, no ecchymosis) Eye exam: Present: normal appearance, PERRL, EOMI ENT exam: Present: normal exam Neck exam: Present: normal inspection. Absent: tenderness, meningismus Respiratory exam: Present: normal lung sounds bilaterally. Absent: respiratory distress Cardiovascular Exam: Present: regular rate, normal rhythm GI/Abdominal exam: Present: soft. Absent: distended, tenderness Extremities exam: Present: normal inspection, normal capillary refill. Absent: pedal edema Back exam: Present: normal inspection, full ROM Neurological exam: Present: alert, oriented X3, CN II-XII intact. Absent: motor sensory deficit Psychiatric exam: Present: normal affect, normal mood Skin exam: Present: warm, dry, intact. Absent: cyanosis, diaphoretic Course Vital Signs 10/09/18 10/09/18 10/09/18 03:29 04:18 05:18 Temperature 98.4 F Pulse Rate 76 66 61 Respiratory 20 18 18 Rate Blood Pressure 119/80 106/70 100/65 O2 Sat by Pulse 98 100 100 Oximetry EKG Findings - EKG Comments: EKG Findings:: EKG: Sinus rhythm with sinus arrhythmia, rate of 63, MS interval 170, QRS duration 82, QTC 397, no ST segment elevation or depression Medical Decision Making - Medical Decision Making 43-year-old female presenting with seizure yesterday and head trauma. Head CT is obtained, negative for intracranial hemorrhage or mass effect. CBC is within normal limits, CMP also within normal limits. Urinalysis does show urinary tract infection and nitrate positive with 15 white cells and rare bacteria. Patient will be treated for urinary tract infection. She will also be started on Keppra as she was previously taking, she will follow-up with her neurologist. - Lab Data Result diagrams: 10/09/18 04:09 10/09/18 04:09 Lab Results 10/09/18 10/09/18 10/09/18 Range/Units 04:09 04:09 04:09 WBC 7.0 (3.8-10.6) k/uL RBC 4.27 (3.80-5.40) m/uL Hgb 12.3 (11.4-16.0) gm/dL Hct 37.3 (34.0-46.0) % MCV 87.4 (80.0-100.0) fL MCH 28.8 (25.0-35.0) pg MCHC 33.0 (31.0-37.0) g/dL RDW 13.9 (11.5-15.5) % Plt Count 193 (150-450) k/uL Neutrophils % 65 % Lymphocytes % 24 % Monocytes % 6 % Eosinophils % 2 % Basophils % 1 % Neutrophils # 4.6 (1.3-7.7) k/uL Lymphocytes # 1.7 (1.0-4.8) k/uL Monocytes # 0.4 (0-1.0) k/uL Eosinophils # 0.1 (0-0.7) k/uL Basophils # 0.1 (0-0.2) k/uL Sodium 139 (137-145) mmol/L Potassium 4.3 (3.5-5.1) mmol/L Chloride 110 H (98-107) mmol/L Carbon Dioxide 20 L (22-30) mmol/L Anion Gap 9 mmol/L BUN 13 (7-17) mg/dL Creatinine 0.67 (0.52-1.04) mg/dL Est GFR (CKD-EPI)AfAm >90 (>60 ml/min/1.73 sqM) Est GFR (CKD-EPI)NonAf >90 (>60 ml/min/1.73 sqM) Glucose 97 (74-99) mg/dL Calcium 9.2 (8.4-10.2) mg/dL Total Bilirubin 0.6 (0.2-1.3) mg/dL AST 23 (14-36) U/L ALT 20 (9-52) U/L Alkaline Phosphatase 57 (38-126) U/L Total Protein 7.4 (6.3-8.2) g/dL Albumin 3.9 (3.5-5.0) g/dL Urine Color Yellow Urine Appearance Cloudy H (Clear) Urine pH 5.5 (5.0-8.0) Ur Specific [place] 1.016 (1.001-1.035) Urine Protein Negative (Negative) Urine Glucose (UA) Negative (Negative) Urine Ketones Negative (Negative) Urine Blood Trace H (Negative) Urine Nitrite Positive H (Negative) Urine Bilirubin Negative (Negative) Urine Urobilinogen <2.0 (<2.0) mg/dL Ur Leukocyte Esterase Small H (Negative) Urine RBC 3 (0-5) /hpf Urine WBC 15 H (0-5) /hpf Ur Squamous Epith Cells 11 H (0-4) /hpf Urine Bacteria Many H (None) /hpf Hyaline Casts 3 H (0-2) /lpf Urine Mucus Rare H (None) /hpf Disposition Clinical Impression: Generalized seizure, UTI (urinary tract infection) Disposition: HOME SELF-CARE Condition: Good Instructions: Recurrent Seizures in Adults (ED), Urinary Tract Infection in Women (ED) Prescriptions: levETIRAcetam [Keppra] 500 mg PO Q12HR #30 tab Sulfamethox-Tmp 800-160Mg [Bactrim DS 800-160 mg] 1 tab PO Q12HR #20 tab Is patient prescribed a controlled substance at d/c from ED?: No Referrals: Dorinda Pierce MD [Primary Care Provider] - 1-2 days Rolanda Borrego MD [STAFF PHYSICIAN] - 1-2 days Time of Disposition: 06:02
[2018-10-09 04:19] VITALS: RESP 18
[2018-10-09 04:37] LABS: ALT 20 U/L (9-52); AST 23 U/L (14-36); Albumin 3.9 g/dL (3.5-5.0); Alkaline Phosphatase 57 U/L (38-126); Anion Gap 9 mmol/L; Blood Urea Nitrogen 13 mg/dL (7-17); Calcium 9.2 mg/dL (8.4-10.2); Carbon Dioxide 20 mmol/L (22-30); Chloride 110 mmol/L (98-107); Glucose 97 mg/dL (74-99); Potassium 4.3 mmol/L (3.5-5.1); Sodium 139 mmol/L (137-145); Total Bilirubin 0.6 mg/dL (0.2-1.3); Total Protein 7.4 g/dL (6.3-8.2)
--- NOTE | 2018-10-09 04:47 | CT ---
EXAMINATION TYPE: CT brain wo con DATE OF EXAM: 10/09/2018 COMPARISON: 03/18/2017 HISTORY: seizure CT DLP: 1040.4 mGycm. Automated Exposure Control for Dose Reduction was Utilized. TECHNIQUE: CT scan of the head is performed without contrast. FINDINGS: Ventricles and sulci appear normal. There is no mass effect nor midline shift. There is no sign of intracranial hemorrhage. Calvarium is intact. IMPRESSION: Negative CT scan of the brain. No change.
[2018-10-09 04:52] LABS: Basophils # (A) 0.1 k/uL (0-0.2); Basophils % (A) 1 %; Eosinophils # (A) 0.1 k/uL (0-0.7); Eosinophils % (A) 2 %; HCT 37.3 % (34.0-46.0); HGB 12.3 gm/dL (11.4-16.0); Lymphocytes # (A) 1.7 k/uL (1.0-4.8); Lymphocytes % (A) 24 %; MCH 28.8 pg (25.0-35.0); MCV 87.4 fL (80.0-100.0); Mean Platelet Volume 7.4; Monocytes # (A) 0.4 k/uL (0-1.0); Monocytes % (A) 6 %; Neutrophils # (A) 4.6 k/uL (1.3-7.7); Neutrophils % (A) 65 %; Platelet Count 193 k/uL (150-450); RBC 4.27 m/uL (3.80-5.40); RDW 13.9 % (11.5-15.5)
[2018-10-09 05:18] VITALS: BP 100/65; PULSE 61
[2018-10-09 05:53] LABS: Appearance,Urine Cloudy (Clear); Bacteria,Urine Many /hpf; Bilirubin,Urine Negative (Negative); Blood,Urine Trace (Negative); Color,Urine Yellow; Glucose,Urine (UA) Negative (Negative); Hyaline Casts,Urine 3 /lpf (0-2); Ketones,Urine Negative (Negative); Leukocyte Esterase,Urine Small (Negative); Mucus,Urine Rare /hpf; Nitrite,Urine Positive (Negative); PH, Urine 5.5 (5.0-8.0); Protein,Urine Negative (Negative); RBC,Urine 3 /hpf (0-5); Specific Gravity,Urine 1.016 (1.001-1.035); Squamous Epithelial Cell,Urine 11 /hpf (0-4); Urobilinogen,Urine <2.0 mg/dL (<2.0); WBC,Urine 15 /hpf (0-5)
== END 2018-10-09 06:11 | disposition home or self-care (01) ==
LOC: EC 03:21
DX: G40.409 Other generalized epilepsy and epileptic syndromes, not intractable, without status epilepticus (principal); N39.0 Urinary tract infection, site not specified; E07.9 Disorder of thyroid, unspecified; Z79.899 Other long term (current) drug therapy; Z88.6 Allergy status to analgesic agent; Z88.5 Allergy status to narcotic agent
CPT/HCPCS: 36415; 70450; 80053; 81001; 85025; 93005; 96360; 96361; 99285

== ENCOUNTER 2019-06-21 21:05 | Emergency (ER) | payer BC ==
[2019-06-21 21:11] VITALS: RESP 18
[2019-06-21] MEDS ORDERED: KETOROLAC 30 MG/ML 1 ML VIAL IM STA (22:53)
--- NOTE | 2019-06-21 22:53 | ED ---
Upper Extremity HPI - General Chief Complaint: Extremity Injury, Upper Stated Complaint: Arm pain Time Seen by Provider: 06/21/19 21:43 Source: patient Mode of arrival: ambulatory Limitations: no limitations - History of Present Illness Initial Comments: Patient is a 44-year-old female presents the emergency department today for evaluation of 3 weeks of right-sided shoulder pain. Patient reports she has to do repetitive tasks at work and has developed progressively worsening right- sided shoulder pain and reports over the past couple days it seems to be worse at her shoulder feels stiff. Patient has not tried any Tylenol Motrin ice or heat. She reports she just fine to be a gnawing and dealing with a however she became concerned because it's persisting. Patient has continued to go to work daily and continue to have repetitive tasks despite the discomfort. - Related Data Home Medications Medication Instructions Recorded Confirmed Levothyroxine Sodium [Synthroid] 100 mcg PO DAILY 10/09/18 06/21/19 Previous Rx's Medication Instructions Recorded Gabapentin [Neurontin] 100 mg PO TID #30 cap 06/21/19 Ibuprofen [Motrin] 600 mg PO Q8HR #30 tab 06/21/19 Allergies Allergy/AdvReac Type Severity Reaction Status Date / Time aspirin AdvReac Severe BLOODY Verified 06/21/19 21:27 NOSE/Itching codeine AdvReac Swelling/It Verified 06/21/19 21:27 afshan Review of Systems ROS Statement: Those systems with pertinent positive or pertinent negative responses have been documented in the HPI. ROS Other: All systems not noted in ROS Statement are negative. Past Medical History Past Medical History: Seizure Disorder, Thyroid Disorder History of Any Multi-Drug Resistant Organisms: None Reported Past Surgical History: Cholecystectomy Past Psychological History: No Psychological Hx Reported Smoking Status: Never smoker Past Alcohol Use History: None Reported Past Drug Use History: None Reported General Exam - General Exam Comments Initial Comments: Physical Exam GENERAL: Patient is well-developed and well-nourished. Patient is nontoxic and well- hydrated and is in no distress. HENT: Normocephalic, Atraumatic. EYES: PERRL, EOMI PULMONARY: Unlabored respirations. No audible rales rhonchi or wheezing was noted. CARDIOVASCULAR: There is a regular rate and rhythm without any murmurs gallops or rubs. ABDOMEN: Soft and nontender with normal bowel sounds. SKIN: Skin is clear with no lesions or rashes and otherwise unremarkable. : Deferred NEUROLOGIC: Patient is alert and oriented x3. Moving all extremities spontaneously MUSCULOSKELETAL: Decreased range of motion of the right shoulder secondary to discomfort, there is no obvious injury or dislocation, no bruising no swelling no redness no signs of a septic joint There is tenderness to palpation of the soft tissues, I suspect the patient has a rotator cuff injury PSYCHIATRIC: Normal psychiatric evaluation. Limitations: no limitations Course Vital Signs 06/21/19 06/21/19 21:07 23:07 Temperature 99.1 F 98.6 F Pulse Rate 73 88 Respiratory 18 18 Rate Blood Pressure 124/79 115/76 O2 Sat by Pulse 98 100 Oximetry Medical Decision Making - Medical Decision Making The patient was seen and evaluated history is obtained from patient, based on history and physical exam I suspect the patient has soft tissue injury secondary to repetitive tasks, she has no trauma no indications for further imaging. I recommended the patient alternate Tylenol Motrin and follow-up with orthopedics for her chronic pain Disposition Clinical Impression: Shoulder pain Disposition: HOME SELF-CARE Instructions (If sedation given, give patient instructions): Paresthesia (ED), Cervical Radiculopathy (ED) Prescriptions: Ibuprofen [Motrin] 600 mg PO Q8HR #30 tab Gabapentin [Neurontin] 100 mg PO TID #30 cap Is patient prescribed a controlled substance at d/c from ED?: No Referrals: Dorinda Pierce MD [Primary Care Provider] - 1-2 days
[2019-06-21 23:09] VITALS: BP 115/76; PULSE 88; TEMP 98.6
== END 2019-06-21 23:10 | disposition home or self-care (01) ==
LOC: EC 21:05
DX: M25.511 Pain in right shoulder (principal); E07.9 Disorder of thyroid, unspecified; Z88.5 Allergy status to narcotic agent; Z88.6 Allergy status to analgesic agent; Z79.890 Hormone replacement therapy; X50.3XXA Overexertion from repetitive movements, initial encounter; Y92.69 Other specified industrial and construction area as the place of occurrence of the external cause
CPT/HCPCS: 99283; 96372; J1885

== ENCOUNTER 2019-07-19 21:46 | Emergency (ER) | payer BC ==
[2019-07-19 21:54] VITALS: RESP 18
[2019-07-19] MEDS ORDERED: METOCLOPRAMIDE 5 MG/ML 2 ML VIAL IVP STA (22:08)
[2019-07-19] MEDS ORDERED: diphenhydrAMINE 50 MG/ML 1 ML VIAL IVP STA (22:08)
[2019-07-19] MEDS ORDERED: SODIUM CHLORIDE 0.9% 1,000 ML IV STA (22:08)
[2019-07-19] MEDS ORDERED: KETOROLAC 30 MG/ML 1 ML VIAL IVP STA (22:10)
[2019-07-19] MEDS ORDERED: MAGNESIUM SULFATE-D5W PMX 1 GM in DEXTROSE/WATER 1 100ML.BAG IVPB ONE (22:10)
[2019-07-19] MEDS ORDERED: DEXAMETHASONE SOD PHOSPHATE 10 MG/ML 1 ML VIAL IV STA (22:11)
[2019-07-19 22:31] LABS: Basophils # (A) 0.1 k/uL (0-0.2); Basophils % (A) 1 %; Eosinophils # (A) 0.4 k/uL (0-0.7); Eosinophils % (A) 5 %; HCT 35.8 % (34.0-46.0); HGB 12.4 gm/dL (11.4-16.0); Lymphocytes # (A) 2.4 k/uL (1.0-4.8); Lymphocytes % (A) 31 %; MCH 30.1 pg (25.0-35.0); MCHC 34.6 g/dL (31.0-37.0); MCV 86.9 fL (80.0-100.0); Mean Platelet Volume 6.9; Monocytes # (A) 0.3 k/uL (0-1.0); Monocytes % (A) 4 %; Neutrophils # (A) 4.5 k/uL (1.3-7.7); Neutrophils % (A) 57 %; Platelet Count 229 k/uL (150-450); RBC 4.12 m/uL (3.80-5.40); RDW 14.1 % (11.5-15.5); WBC 7.9 k/uL (3.8-10.6)
[2019-07-19] MEDS ORDERED: FLUCONAZOLE 150 MG TAB PO STA (22:32)
[2019-07-19 22:42] LABS: HCG,Qualitative Serum Not Detected
[2019-07-19 22:43] LABS: ALT 20 U/L (9-52); AST 39 U/L (14-36); African American GFR (CKD) 82 (>60 ml/min/1.73 sqM); Albumin 4.1 g/dL (3.5-5.0); Alkaline Phosphatase 79 U/L (38-126); Anion Gap 9 mmol/L; Blood Urea Nitrogen 10 mg/dL (7-17); Calcium 9.2 mg/dL (8.4-10.2); Carbon Dioxide 26 mmol/L (22-30); Chloride 106 mmol/L (98-107); Glucose 115 mg/dL (74-99); Potassium 3.7 mmol/L (3.5-5.1); Sodium 141 mmol/L (137-145); Total Bilirubin 0.5 mg/dL (0.2-1.3); Total Protein 7.6 g/dL (6.3-8.2)
--- NOTE | 2019-07-19 23:42 | ED ---
Headache HPI - General Chief Complaint: Headache Stated Complaint: Migraine Mode of arrival: ambulatory Limitations: no limitations - History of Present Illness Initial Comments: The patient is a 44 year female who presents to emergency room with reported migraine. The patient states that it started yesterday. It was not sudden onset or maximal intensity. This is not the worse headache of her life. She does report occasional migraines require her to come in to the emergency department for treatment. States that she attempted to take Tylenol at home however did not have improvement in her symptoms. She denies any fevers or chills. No neck pain or stiffness. No recent travel or sick contacts. She denies any vomiting. Does admit to nausea. No recent head trauma. Denies any chiropractic manipulations of the neck. Denies any unilateral numbness or weakness. No chest pain or shortness of breath. Denies possibility of being . Denies any unilateral numbness or weakness. There are no other alleviating, precipitating or modifying factors - Related Data Home Medications Medication Instructions Recorded Confirmed Levothyroxine Sodium [Synthroid] 50 mcg PO DAILY 07/19/19 07/19/19 Allergies Allergy/AdvReac Type Severity Reaction Status Date / Time aspirin AdvReac Severe BLOODY Verified 07/19/19 22:19 NOSE/Itching codeine AdvReac Swelling/It Verified 07/19/19 22:19 afshan Review of Systems ROS Statement: Those systems with pertinent positive or pertinent negative responses have been documented in the HPI. ROS Other: All systems not noted in ROS Statement are negative. Past Medical History Past Medical History: Seizure Disorder, Thyroid Disorder Additional Past Medical History / Comment(s): migraines History of Any Multi-Drug Resistant Organisms: None Reported Past Surgical History: Cholecystectomy Past Psychological History: No Psychological Hx Reported Smoking Status: Never smoker Past Alcohol Use History: None Reported Past Drug Use History: None Reported General Exam Limitations: no limitations General appearance: alert, in no apparent distress Head exam: Present: atraumatic, normocephalic, normal inspection Eye exam: Present: normal appearance, PERRL, EOMI. Absent: scleral icterus, conjunctival injection, periorbital swelling ENT exam: Present: normal exam, mucous membranes moist Neck exam: Present: normal inspection. Absent: tenderness, meningismus, lymphadenopathy Respiratory exam: Present: normal lung sounds bilaterally. Absent: respiratory distress, wheezes, rales, rhonchi, stridor Cardiovascular Exam: Present: regular rate, normal rhythm, normal heart sounds. Absent: systolic murmur, diastolic murmur, rubs, gallop, clicks GI/Abdominal exam: Present: soft, normal bowel sounds. Absent: distended, tenderness, guarding, rebound, rigid Extremities exam: Present: normal inspection, full ROM, normal capillary refill. Absent: tenderness, pedal edema, joint swelling, calf tenderness Back exam: Present: normal inspection Neurological exam: Present: alert, oriented X3, CN II-XII intact Psychiatric exam: Present: normal affect, normal mood Skin exam: Present: warm, dry, intact, normal color. Absent: rash Course Vital Signs 07/19/19 07/20/19 21:50 00:03 Temperature 97.8 F 98.8 F Pulse Rate 78 75 Respiratory 18 18 Rate Blood Pressure 115/79 100/61 O2 Sat by Pulse 98 98 Oximetry Medical Decision Making - Medical Decision Making Upon arrival the patient's placed into room 26. She is hooked up to continuous pulse ox and cardiac monitoring. Patient states that this is consistent with her previous migraines and would like to forego a CT of her brain at this time. Peripheral IV was established. The patient was given 10 mg of dexamethasone, 25 mg of Benadryl, 15 mg of Toradol, 1 g of magnesium and 10 mg of Reglan. She was also given a liter bolus of normal saline. Laboratories his were conducted. The blood cell count is 7.9, hemoglobin 12.4, hematocrit 35.8 and platelets of 229. Glucose is 115. HCG not detected. I did discuss his results the patient. She is reevaluated and had complete resolution of her pain. Patient is stable for discharge at this time. She should return to the emergency room she has any new or worsening symptoms. She is to follow-up with her primary care doctor within 2-4 days. The patient was then discharged home in stable condition - Lab Data Result diagrams: 07/19/19 22:20 07/19/19 22:20 Lab Results 07/19/19 07/19/19 Range/Units 22:20 22:20 WBC 7.9 (3.8-10.6) k/uL RBC 4.12 (3.80-5.40) m/uL Hgb 12.4 (11.4-16.0) gm/dL Hct 35.8 (34.0-46.0) % MCV 86.9 (80.0-100.0) fL MCH 30.1 (25.0-35.0) pg MCHC 34.6 (31.0-37.0) g/dL RDW 14.1 (11.5-15.5) % Plt Count 229 (150-450) k/uL Neutrophils % 57 % Lymphocytes % 31 % Monocytes % 4 % Eosinophils % 5 % Basophils % 1 % Neutrophils # 4.5 (1.3-7.7) k/uL Lymphocytes # 2.4 (1.0-4.8) k/uL Monocytes # 0.3 (0-1.0) k/uL Eosinophils # 0.4 (0-0.7) k/uL Basophils # 0.1 (0-0.2) k/uL Sodium 141 (137-145) mmol/L Potassium 3.7 (3.5-5.1) mmol/L Chloride 106 (98-107) mmol/L Carbon Dioxide 26 (22-30) mmol/L Anion Gap 9 mmol/L BUN 10 (7-17) mg/dL Creatinine 0.99 (0.52-1.04) mg/dL Est GFR (CKD-EPI)AfAm 82 (>60 ml/min/1.73 sqM) Est GFR (CKD-EPI)NonAf 71 (>60 ml/min/1.73 sqM) Glucose 115 H (74-99) mg/dL Calcium 9.2 (8.4-10.2) mg/dL Total Bilirubin 0.5 (0.2-1.3) mg/dL AST 39 H (14-36) U/L ALT 20 (9-52) U/L Alkaline Phosphatase 79 (38-126) U/L Total Protein 7.6 (6.3-8.2) g/dL Albumin 4.1 (3.5-5.0) g/dL HCG, Qual Not Detected Disposition Clinical Impression: Headache Disposition: HOME SELF-CARE Condition: Stable Instructions (If sedation given, give patient instructions): Acute Headache (ED) Additional Instructions: Please follow-up with your primary care doctor. Return to the emergency room for any new or worsening symptoms Is patient prescribed a controlled substance at d/c from ED?: No Referrals: Dorinda Pierce MD [Primary Care Provider] - 1-2 days Time of Disposition: 23:42
[2019-07-20 00:04] VITALS: BP 100/61; PULSE 75; TEMP 98.8
== END 2019-07-20 00:03 | disposition home or self-care (01) ==
LOC: EC 21:46
DX: R51 Headache (principal); E07.9 Disorder of thyroid, unspecified; Z79.890 Hormone replacement therapy; Z53.9 Procedure and treatment not carried out, unspecified reason; Z88.6 Allergy status to analgesic agent; Z88.5 Allergy status to narcotic agent; Z86.69 Personal history of other diseases of the nervous system and sense organs
CPT/HCPCS: 99283; 96365; 96375 ×4; 36415; 80053; 85025; 84703; J1200; J1100; J2765; J1885; J3475

== ENCOUNTER → 2019-11-25 | Outpatient (CLI) | payer BC ==
--- NOTE | 2019-11-25 16:16 | XR ---
EXAMINATION TYPE: XR thoracic spine complete DATE OF EXAM: 11/25/2019 CLINICAL HISTORY: Back pain with history of renal calculi TECHNIQUE: Frontal, lateral, and swimmer's view of thoracic spine are obtained. COMPARISON: None. FINDINGS: Thoracic spine show satisfactory alignment without evidence of acute fracture or dislocatio n. Vertebral body heights are preserved. Few anterior osteophytes are seen of the upper and mid thor acic spine. Visualized ribs are unremarkable. Cholecystectomy clips are seen. IMPRESSION: No acute fracture or malalignment is seen in the thoracic spine. 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
--- NOTE | 2019-11-25 16:21 | XR ---
EXAMINATION TYPE: XR KUB DATE OF EXAM: 11/25/2019 3:47 PM CLINICAL HISTORY: History of renal calculi. Back pain. TECHNIQUE: Single supine KUB image of the abdomen is obtained. COMPARISON: None. FINDINGS: 7 mm calculus overlies the right renal shadow. Multiple phleboliths are noted within the pe lvis. Cholecystectomy clips are seen. No calculi overlie the left renal shadow. Osseous structures ap pear intact. No dilated large or small bowel. IMPRESSION: 1. Right renal calculus measuring 7 mm. 2. Nonobstructive bowel gas pattern.
== END | disposition home or self-care (01) ==
LOC: RADXRMAIN 15:28
PROVIDERS: ATTEND Family Medicine
DX: M51.34 Other intervertebral disc degeneration, thoracic region (principal); N20.0 Calculus of kidney
CPT/HCPCS: 72072; 74018

== ENCOUNTER 2019-12-03 11:27 | Emergency (ER) | payer BC ==
[2019-12-03 11:31] VITALS: BP 121/80; PULSE 80; RESP 20; TEMP 98.2
[2019-12-03] MEDS ORDERED: KETOROLAC 60 MG/2 ML VIAL IM STA (11:58)
[2019-12-03] MEDS ORDERED: ORPHENADRINE 30 MG/ML 2 ML VIAL IM STA (11:58)
--- NOTE | 2019-12-03 12:03 | ED ---
General Adult HPI - General Chief complaint: Back Pain/Injury Stated complaint: back pain Time Seen by Provider: 12/03/19 11:30 Source: patient, RN notes reviewed, old records reviewed Mode of arrival: ambulatory Limitations: no limitations - History of Present Illness Initial comments: Is a 44-year-old female who presents emergency Department complaining of mid thoracic back pain. Patient states it's been hurting about a week now. Patient states it hurts to move or twist and she believes it may have occurred when she was moving some furniture about a week ago. 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 Patient states she did see her own physician with the physician did not give any medications. Patient denies any abdominal pain patient denies any nausea vomiting or diarrhea. Patient denies any fever. Patient denies any lightheadedness or dizziness. - Related Data Home Medications Medication Instructions Recorded Confirmed Levothyroxine Sodium [Synthroid] 50 mcg PO DAILY 07/19/19 07/19/19 Previous Rx's Medication Instructions Recorded Cyclobenzaprine [Flexeril] 10 mg PO TID #20 tab 12/03/19 Ibuprofen [Motrin] 600 mg PO Q6HR PRN #20 tab 12/03/19 Allergies Allergy/AdvReac Type Severity Reaction Status Date / Time aspirin AdvReac Severe BLOODY Verified 12/03/19 11:31 NOSE/Itching codeine AdvReac Swelling/It Verified 12/03/19 11:31 afshan Review of Systems ROS Statement: Those systems with pertinent positive or pertinent negative responses have been documented in the HPI. ROS Other: All systems not noted in ROS Statement are negative. Past Medical History Past Medical History: Seizure Disorder, Thyroid Disorder Additional Past Medical History / Comment(s): migraines History of Any Multi-Drug Resistant Organisms: None Reported Past Surgical History: Cholecystectomy Past Psychological History: No Psychological Hx Reported Smoking Status: Never smoker Past Alcohol Use History: None Reported Past Drug Use History: None Reported General Exam - General Exam Comments Initial Comments: GENERAL: Patient is well-developed and well-nourished. Patient is nontoxic and well- hydrated and is in mild distress. ENT: Neck is soft and supple. No significant lymphadenopathy is noted. Oropharynx is clear. Moist mucous membranes. Neck has full range of motion without eliciting any pain. EYES: The sclera were anicteric and conjunctiva were pink and moist. Extraocular movements were intact and pupils were equal round and reactive to light. Eyelids were unremarkable. PULMONARY: Unlabored respirations. Good breath sounds bilaterally. No audible rales rhonchi or wheezing was noted. CARDIOVASCULAR: There is a regular rate and rhythm without any murmurs gallops or rubs. ABDOMEN: Soft and nontender with normal bowel sounds. SKIN: Skin is clear with no lesions or rashes and otherwise unremarkable. NEUROLOGIC: Patient is alert and oriented x3. Cranial nerves II through XII are grossly intact. Motor and sensory are also intact. Normal speech, volume and content. Symmetrical smile. MUSCULOSKELETAL: Normal extremities with adequate strength and full range of motion. Patient does not have reproducible back pain on palpation however when the patient twist or bends the pain is reproduced LYMPHATICS: No significant lymphadenopathy is noted PSYCHIATRIC: Normal psychiatric evaluation. Limitations: no limitations Course Vital Signs 12/03/19 11:29 Temperature 98.2 F Pulse Rate 80 Respiratory 20 Rate Blood Pressure 121/80 O2 Sat by Pulse 99 Oximetry Disposition Clinical Impression: Thoracic back pain Disposition: HOME SELF-CARE Condition: Good Prescriptions: Cyclobenzaprine [Flexeril] 10 mg PO TID #20 tab Ibuprofen [Motrin] 600 mg PO Q6HR PRN #20 tab PRN Reason: For pain Is patient prescribed a controlled substance at d/c from ED?: No Referrals: Dorinda Pierce MD [Primary Care Provider] - 1-2 days Time of Disposition: 12:02
== END 2019-12-03 12:20 | disposition home or self-care (01) ==
LOC: EC 11:27
DX: M54.6 Pain in thoracic spine (principal); E07.9 Disorder of thyroid, unspecified; Z79.890 Hormone replacement therapy; Z88.6 Allergy status to analgesic agent; Z88.5 Allergy status to narcotic agent
CPT/HCPCS: 96372 ×2; 99283; J2360; J1885

== ENCOUNTER → 2020-05-13 | Outpatient (CLI) | payer BC ==
--- NOTE | 2020-05-13 16:32 | US ---
EXAMINATION TYPE: US thyroid st tissue head/neck DATE OF EXAM: 05/13/2020 COMPARISON: CLINICAL HISTORY: E04.9 goiter. Abnormal labs. On thyroid meds. GLAND SIZE: Right Lobe: 3.6 x 1.2 x 1.4 cm Overall Parenchyma: heterogenous Left Lobe: 3.9 x 1.4 x 1.0 cm Overall Parenchyma: heterogeneous Isthmus Thickness: 0.4 cm NODULES RIGHT: # of nodules measured on right: 0 LEFT: # of nodules measured on left: 0 ISTHMUS: # of nodules measured in the isthmus: 0 Bilateral neck scanned, no evidence of lymphadenopathy. IMPRESSION: Heterogenous nonenlarged thyroid gland, with no focal abnormality.
--- NOTE | 2020-05-14 09:39 | ECHOF ---
Referral Reason:R01.1 MEASUREMENTS -------- HEIGHT: 154.9 cm WEIGHT: 83.5 kg BP: RVIDd: 2.5 cm (< 3.3) IVSd: 0.9 cm (0.6 - 1.1) LVIDd: 4.3 cm (3.9 - 5.3) LVPWd: 1.0 cm (0.6 - 1.1) IVSs: 1.3 cm LVIDs: 2.3 cm LVPWs: 1.4 cm LAESV Index (A-L): 18.98 ml/m Ao Diam: 2.4 cm (2.0 - 3.7) AV Cusp: 1.9 cm (1.5 - 2.6) LA Diam: 2.8 cm (2.7 - 3.8) MV EXCURSION: 14.577 mm (> 18.000) MV EF SLOPE: 142 mm/s (70 - 150) EPSS: 0.6 cm MV E Ehsan: 0.98 m/s MV DecT: 152 ms MV A Ehsan: 0.62 m/s MV E/A Ratio: 1.60 AR PHT: 258 ms RAP: 5.00 mmHg RVSP: 25.93 mmHg FINDINGS -------- Sinus rhythm. This was a technically good study. LV size, wall thickness and systolic function are normal, with an EF greater than 55%. The left jer tricular size is normal. The diastolic filling pattern is normal for the age of the patient 10.26. The right ventricle is normal in size. Normal LA size by volume 22+/-6 ml/m2. The right atrial size is normal. Interatrial and interventricular septum intact. The aortic valve is trileaflet, and appears structurally normal. No aortic stenosis or regurgitation. The mitral valve is normal. There is trace mitral regurgitation. The tricuspid valve appears structurally normal. Mild tricuspid regurgitation present. Right vent ricular systolic pressure is normal at < 35 mmHg. There is no pulmonic regurgitation present. The aortic root size is normal. Normal inferior vena cava with normal inspiratory collapse consistent with estimated right atrial pre ssure of 5 mmHg. There is no pericardial effusion. CONCLUSIONS -------- 1. LV size, wall thickness and systolic function are normal, with an EF greater than 55%. 2. The diastolic filling pattern is normal for the age of the patient 10.26 3. Normal LA size by volume 22+/-6 ml/m2. 4. The aortic valve is trileaflet, and appears structurally normal. No aortic stenosis or regurgitati on. 5. There is trace mitral regurgitation. 6. Mild tricuspid regurgitation present. CHARGE ATTENDANT: Aga Quintana RDCS
== END | disposition home or self-care (01) ==
LOC: RADUSWWP 15:34
PROVIDERS: ATTEND Family Medicine
DX: E04.9 Nontoxic goiter, unspecified (principal); R01.1 Cardiac murmur, unspecified; I08.1 Rheumatic disorders of both mitral and tricuspid valves
CPT/HCPCS: 76536; 93306

== ENCOUNTER 2020-11-19 16:06 | Emergency (ER) | payer BC ==
[2020-11-19 16:11] VITALS: BP 117/71; PULSE 86; RESP 18; TEMP 98.9
--- NOTE | 2020-11-19 16:20 | ED ---
Lower Extremity Injury HPI - General Chief Complaint: Extremity Injury, Lower Stated Complaint: leg pain Time Seen by Provider: 11/19/20 16:14 Source: patient Mode of arrival: ambulatory Limitations: no limitations - History of Present Illness Initial Comments: 45-year-old female presenting to the emergency department with a chief complaint of leg pain. Patient reports this was a nontraumatic pain to left leg was started about 3 days ago. Patient reports the pain is worse with ambulation. She states that he feels like a big "charley horse" in the thigh and calf. She denies any numbness or tingling. Denies taking medication to alleviate the symptoms. States the pain is dull and about 5. Patient denies any chest pain or shortness of breath. Denies any unilateral leg swelling. She does not taking exogenous estrogen. No history of PE or DVT. No history of cancer with chemotherapy. Denies any recent hospital stay. - Related Data Home Medications Medication Instructions Recorded Confirmed Levothyroxine Sodium [Synthroid] 50 mcg PO DAILY 07/19/19 11/19/20 Previous Rx's Medication Instructions Recorded Cyclobenzaprine [Flexeril] 10 mg PO TID #20 tab 12/03/19 Ibuprofen [Motrin] 600 mg PO Q6HR PRN #20 tab 12/03/19 Allergies Allergy/AdvReac Type Severity Reaction Status Date / Time aspirin AdvReac Severe BLOODY Verified 11/19/20 16:11 NOSE/Itching codeine AdvReac Swelling/It Verified 11/19/20 16:11 afshan Review of Systems ROS Statement: Those systems with pertinent positive or pertinent negative responses have been documented in the HPI. ROS Other: All systems not noted in ROS Statement are negative. Past Medical History Past Medical History: Seizure Disorder, Thyroid Disorder Additional Past Medical History / Comment(s): migraines History of Any Multi-Drug Resistant Organisms: None Reported Past Surgical History: Cholecystectomy Past Psychological History: No Psychological Hx Reported Smoking Status: Current every day smoker Past Alcohol Use History: None Reported Past Drug Use History: None Reported General Exam Limitations: no limitations General appearance: alert, in no apparent distress, obese Head exam: Present: atraumatic, normocephalic, normal inspection Eye exam: Present: normal appearance, PERRL, EOMI Pupils: Present: normal accommodation ENT exam: Present: normal exam, normal oropharynx, mucous membranes moist Neck exam: Present: normal inspection, full ROM. Absent: tenderness Respiratory exam: Present: normal lung sounds bilaterally. Absent: respiratory distress, wheezes, rales Cardiovascular Exam: Present: regular rate, normal rhythm, normal heart sounds Extremities exam: Present: normal inspection, full ROM, tenderness (Mild tenderness to palpation in the medial aspect of the upper thigh. No popliteal tenderness. Tenderness in the left leg. Negative anterior drawer test. Negative Sylvester.), normal capillary refill, calf tenderness (Calf tenderness in the left lower extremity), other (Palpable DP and PT bilaterally.). Absent: pedal edema, joint swelling Back exam: Present: normal inspection, full ROM. Absent: tenderness, CVA tenderness (R), CVA tenderness (L) Neurological exam: Present: alert, oriented X3 Psychiatric exam: Present: normal affect, normal mood Skin exam: Present: warm, dry, intact, normal color Course Vital Signs 11/19/20 16:06 Temperature 98.9 F Pulse Rate 86 Respiratory 18 Rate Blood Pressure 117/71 O2 Sat by Pulse 100 Oximetry Medical Decision Making - Medical Decision Making 45-year-old female presenting to emergency Department with a chief complaint of leg pain. On physical examination, patient is neurovascularly intact in the left lower extremity. Ultrasound was negative for DVT. I do suspect sprain of the left leg due to her job which requires prolonged periods of standing and she works on the line in the factory. Advised to alternate between Tylenol and Motrin for pain control. Advised to apply warm compresses. Return parameters discussed the patient was sitting agreeable. Case discussed with physician. Disposition Clinical Impression: Leg pain, left Disposition: HOME SELF-CARE Condition: Stable Instructions (If sedation given, give patient instructions): Leg Pain (ED) Additional Instructions: Alternate between Tylenol and Motrin for pain control. Follow with primary care physician. Return to emergency department if symptoms worsen. Is patient prescribed a controlled substance at d/c from ED?: No Referrals: Dorinda Pierce MD [Primary Care Provider] - 1-2 days Time of Disposition: 17:14
--- NOTE | 2020-11-19 17:05 | US ---
EXAMINATION TYPE: US venous doppler duplex LE LT DATE OF EXAM: 11/19/2020 4:29 PM COMPARISON: NONE CLINICAL HISTORY: r/o dvt, pain x 2 days. SIDE PERFORMED: Left TECHNIQUE: The lower extremity deep venous system is examined utilizing real time linear array sonog betsy with graded compression, doppler sonography and color-flow sonography. VESSELS IMAGED: Common Femoral Vein Deep Femoral Vein Greater Saphenous Vein * Femoral Vein Popliteal Vein Small Saphenous Vein * Proximal Calf Veins (* superficial vessels) Left Leg: Negative for DVT IMPRESSION: Negative exam. No evidence of deep vein thrombosis in the left leg.
== END 2020-11-19 17:35 | disposition home or self-care (01) ==
LOC: EC 16:06
DX: M79.605 Pain in left leg (principal); E07.9 Disorder of thyroid, unspecified; F17.200 Nicotine dependence, unspecified, uncomplicated; Z79.890 Hormone replacement therapy; Z88.5 Allergy status to narcotic agent; Z88.6 Allergy status to analgesic agent
CPT/HCPCS: 99283

== ENCOUNTER → 2021-03-04 | Outpatient (CLI) | payer BC ==
--- NOTE | 2021-03-04 08:33 | MR ---
EXAMINATION TYPE: MR brain wo/w con DATE OF EXAM: 03/04/2021 COMPARISON: MRI brain June 25, 2015 HISTORY: Headache, dizziness, Lt side paresthesia TECHNIQUE: Multiplanar, multisequence images of the brain and brainstem is performed without and with IV contras t, utilizing 7.5 mL intravenous Gadavist . FINDINGS: Diffusion weighted images demonstrate no evidence of a recent infarct or other diffusion ab normality. The ventricular system and cisternal spaces are normal in size and appearance. The brain volume is age appropriate. Few scattered small foci of T2 hyperintensity throughout the parenchyma, l ess than 5 small lesions identified on current study. Midline structures redemonstrate normal morphology. The craniocervical junction appears within greg l limits. Post contrast images demonstrate no abnormal enhancement. The dural venous sinuses appear patent. The visualized sinuses are clear and the globes are intact. IMPRESSION: Minimal nonspecific white matter changes otherwise Unremarkable study.
== END | disposition home or self-care (01) ==
LOC: RADMRIMAIN 07:48
PROVIDERS: ATTEND Family Medicine
DX: R90.82 White matter disease, unspecified (principal)
CPT/HCPCS: 70553; A9585

== ENCOUNTER → 2021-03-29 | Outpatient (CLI) | payer BC ==
--- NOTE | 2021-03-29 16:28 | XR ---
EXAMINATION TYPE: XR wrist complete LT, XR knee complete LT DATE OF EXAM: 03/29/2021 CLINICAL HISTORY: Posterior left wrist lump and left knee pain, no injury TECHNIQUE: Three views of the left knee are obtained. 4 views of the left wrist were obtained. COMPARISON: None. FINDINGS: Left wrist: No evidence of fracture or dislocation of the left wrist. The distal radius and ulna, car pals and proximal metacarpals are unremarkable. Soft tissues are unremarkable. No radiopaque foreign body. Left knee: 3 views of the left knee were obtained. No evidence of acute fracture or dislocation of th e left knee. Joint spaces are well-maintained. Probable tiny early calcified lesions within the sharma lar tendon. IMPRESSION: 1. No acute fracture or dislocation of the left wrist. 2. No evidence of fracture or dislocation of the left knee. No significant degenerative narrowing.
== END | disposition home or self-care (01) ==
LOC: RADXRMAIN 15:34
PROVIDERS: ATTEND Family Medicine
DX: M25.562 Pain in left knee (principal); R22.32 Localized swelling, mass and lump, left upper limb

== ENCOUNTER 2021-05-21 18:35 | Emergency (ER) | payer BC ==
[2021-05-21 18:41] VITALS: BP 126/80; PULSE 85; RESP 16; TEMP 98.2
[2021-05-21] MEDS ORDERED: LIDOCAINE 1% INJ 10MG/ML (20 ML MDV) SQ ONE (19:10)
[2021-05-21] MEDS ORDERED: ACET/COD 300 MG/30 MG STARTER PACK 6 TAB BTL PO STA (19:17)
--- NOTE | 2021-05-21 19:21 | ED ---
ENT HPI - General Chief complaint: Dental/Oral Stated complaint: dental pain Time Seen by Provider: 05/21/21 18:59 Source: patient Mode of arrival: ambulatory Limitations: no limitations - History of Present Illness Initial comments: 46-year-old male presents to the emergency department with chief complaint abdominal pain. States this occurred earlier 10 AM when she broke her tooth after eating cashews. States the pain is in the left lower region of oral cavity. She reports mild swelling. Reports taking [id number] Tylenol with some improvement symptoms. Pain worse when touching and eating. Alleviated at rest. Pain is sharp 07/08. - Related Data Home Medications Medication Instructions Recorded Confirmed Levothyroxine Sodium [Synthroid] 50 mcg PO DAILY 07/19/19 11/19/20 Previous Rx's Medication Instructions Recorded Cyclobenzaprine [Flexeril] 10 mg PO TID #20 tab 12/03/19 Ibuprofen [Motrin] 600 mg PO Q6HR PRN #20 tab 12/03/19 Amoxicillin/Potassium Clav 1 tab PO Q12HR #20 tab 05/21/21 [Augmentin 875-125 Tablet] Allergies Allergy/AdvReac Type Severity Reaction Status Date / Time aspirin AdvReac Severe BLOODY Verified 05/21/21 18:40 NOSE/Itching codeine AdvReac Swelling/It Verified 05/21/21 18:40 afshan Review of Systems ROS Statement: Those systems with pertinent positive or pertinent negative responses have been documented in the HPI. ROS Other: All systems not noted in ROS Statement are negative. Past Medical History Past Medical History: Seizure Disorder, Thyroid Disorder Additional Past Medical History / Comment(s): migraines History of Any Multi-Drug Resistant Organisms: None Reported Past Surgical History: Cholecystectomy Past Psychological History: No Psychological Hx Reported Smoking Status: Former smoker Past Alcohol Use History: None Reported Past Drug Use History: None Reported General Exam Limitations: no limitations General appearance: alert, in no apparent distress Head exam: Present: atraumatic, normocephalic, normal inspection Eye exam: Present: normal appearance, PERRL, EOMI Pupils: Present: normal accommodation ENT exam: Present: normal exam, mucous membranes moist. Absent: normal oropharynx (Partially fractured tooth #20) Neck exam: Present: normal inspection, full ROM. Absent: tenderness, lymphadenopathy Respiratory exam: Present: normal lung sounds bilaterally. Absent: respiratory distress, wheezes, rales, rhonchi, stridor Cardiovascular Exam: Present: regular rate, normal rhythm, normal heart sounds Extremities exam: Present: normal inspection, full ROM Back exam: Present: normal inspection, full ROM Neurological exam: Present: alert, oriented X3 Psychiatric exam: Present: normal affect, normal mood Skin exam: Present: warm, dry, intact, normal color Course Vital Signs 05/21/21 18:38 Temperature 98.2 F Pulse Rate 85 Respiratory 16 Rate Blood Pressure 126/80 O2 Sat by Pulse 98 Oximetry Medical Decision Making - Medical Decision Making 46-year-old male presents emergency Department with a chief complaint abdominal pain. Physical examination, partially fractured tooth #20. I offered a dental block, she declined. We'll start the patient on Augmentin. We'll discharged with Tylenol 3 which she has previously tolerated. Advised to follow with a dentist. Case discussed with physician. Disposition Clinical Impression: Toothache, Fracture of tooth Disposition: HOME SELF-CARE Condition: Stable Instructions (If sedation given, give patient instructions): Toothache (ED) Additional Instructions: Please return to the Emergency Department if symptoms worsen or any other concerns. Prescriptions: Amoxicillin/Potassium Clav [Augmentin 875-125 Tablet] 1 tab PO Q12HR #20 tab Is patient prescribed a controlled substance at d/c from ED?: No Referrals: Dorinda Pierce MD [Primary Care Provider] - 1-2 days Time of Disposition: 19:20
== END 2021-05-21 19:26 | disposition home or self-care (01) ==
LOC: EC 18:35
DX: S02.5XXA Fracture of tooth (traumatic), initial encounter for closed fracture (principal); E07.9 Disorder of thyroid, unspecified; Z79.890 Hormone replacement therapy; Z87.891 Personal history of nicotine dependence; Z88.5 Allergy status to narcotic agent; Z88.6 Allergy status to analgesic agent; X58.XXXA Exposure to other specified factors, initial encounter
CPT/HCPCS: 99282

== ENCOUNTER 2021-06-21 08:56 | Emergency (ER) | payer BC ==
[2021-06-21 08:59] VITALS: BP 117/77; PULSE 78; RESP 18; TEMP 98.1
--- NOTE | 2021-06-21 09:16 | ED ---
Upper Extremity HPI - General Chief Complaint: Extremity Injury, Upper Stated Complaint: possible pinched nerve Time Seen by Provider: 06/21/21 09:01 Source: patient Mode of arrival: ambulatory Limitations: no limitations - History of Present Illness Initial Comments: Patient is a 46-year-old female presenting to the emergency Department with complaints of some soreness in her right shoulder started yesterday. Patient states she woke up yesterday morning and felt a little soreness of the top part of her right shoulder. She states she works a very physical job and she was able tolerate yesterday. When she woke up this morning she noticed it more soreness however when she went to her job she had a hard time lifting the heavy parts and felt some tingling into her fourth and fifth digits of her right hand. She states she came here for evaluation. She denies any falls or trauma. She denies any previous neck or right shoulder surgeries. She is right-hand dominant. She denies any fevers or chills, no headaches or blurry vision. She has no further complaints. - Related Data Home Medications Medication Instructions Recorded Confirmed Levothyroxine Sodium [Synthroid] 50 mcg PO DAILY 07/19/19 11/19/20 Previous Rx's Medication Instructions Recorded Cyclobenzaprine [Flexeril] 10 mg PO TID #20 tab 12/03/19 Ibuprofen [Motrin] 600 mg PO Q6HR PRN #20 tab 12/03/19 Amoxicillin/Potassium Clav 1 tab PO Q12HR #20 tab 05/21/21 [Augmentin 875-125 Tablet] Cyclobenzaprine [Flexeril] 5 mg PO TID PRN #10 tablet 06/21/21 Allergies Allergy/AdvReac Type Severity Reaction Status Date / Time aspirin AdvReac Severe BLOODY Verified 06/21/21 08:59 NOSE/Itching codeine AdvReac Swelling/It Verified 06/21/21 08:59 afshan Review of Systems ROS Statement: Those systems with pertinent positive or pertinent negative responses have been documented in the HPI. ROS Other: All systems not noted in ROS Statement are negative. Past Medical History Past Medical History: Seizure Disorder, Thyroid Disorder Additional Past Medical History / Comment(s): migraines History of Any Multi-Drug Resistant Organisms: None Reported Past Surgical History: Cholecystectomy Past Psychological History: No Psychological Hx Reported Smoking Status: Former smoker Past Alcohol Use History: None Reported Past Drug Use History: None Reported General Exam - General Exam Comments Initial Comments: GENERAL: Patient is well-developed and well-nourished. Patient is nontoxic and in no acute distress. HEAD: Atraumatic, normocephalic. EYES: Pupils equal round and reactive to light, extraocular movements intact, sclera anicteric, conjunctiva are normal. Eyelids were unremarkable. ENT: Moist mucous membranes. NECK: Normal range of motion, supple without lymphadenopathy or JVD. No midline tenderness on palpation. She has tenderness along the right upper trapezius muscle, muscle spasms. LUNGS: Unlabored respirations. Breath sounds clear to auscultation bilaterally and equal. No wheezes rales or rhonchi. HEART: Regular rate and rhythm without murmurs, rubs or gallops. MUSCULOSKELETAL: Normal extremities with adequate strength and normal range of motion, no pitting or edema. No clubbing or cyanosis. Critical Care Nurse Practitioner strength is normal bilateral. Neurovascular intact bilaterally upper extremities. NEUROLOGICAL: Patient is alert and oriented x 3. SKIN: Warm, Dry, normal turgor, no rashes or lesions noted. Limitations: no limitations Course Vital Signs 06/21/21 08:57 Temperature 98.1 F Pulse Rate 78 Respiratory 18 Rate Blood Pressure 117/77 O2 Sat by Pulse 98 Oximetry Procedures - Orthopedic Splinting/Casting Injury #1 Side: right Upper Extremity Injury Location: shoulder Upper Extremity Immobilizer: sling/shoulder immobilizer Medical Decision Making - Medical Decision Making Patient is a 46-year-old female here with right shoulder pain as her yesterday after she woke up in the morning. No injuries or traumas. No previous history of cervical or right shoulder surgeries. No fevers or chills. Her exam is consistent with a right upper trapezius muscle spasm with some mild radicul opathy. I recommend heat to the area, gentle stretching and a few days of muscle relaxer. She requested a sling to use for comfort. I will give her one. She is also requesting a work note, I did give her one also. She is stable for discharge. She is agreeable splenic care. Symptoms persisted and follow-up with her primary care physician. Case discussed with Dr. Gamez. Disposition Clinical Impression: Strain of right trapezius muscle, Trapezius muscle spasm Disposition: HOME SELF-CARE Condition: Stable Instructions (If sedation given, give patient instructions): Muscle Spasm (ED) Additional Instructions: Please return to the Emergency Department if symptoms worsen or any other concerns. Use heat to the area, gentle stretching, rest the right upper extremity. May try a muscle relaxers twice daily. Follow-up with your primary care physician if symptoms persist. Prescriptions: Cyclobenzaprine [Flexeril] 5 mg PO TID PRN #10 tablet PRN Reason: Muscle Spasm Is patient prescribed a controlled substance at d/c from ED?: No Referrals: Dorinda Pierce MD [Primary Care Provider] - 1-2 days Time of Disposition: 09:16
== END 2021-06-21 09:33 | disposition home or self-care (01) ==
LOC: EC 08:56
DX: S46.811A Strain of other muscles, fascia and tendons at shoulder and upper arm level, right arm, initial encounter (principal); M62.838 Other muscle spasm; Z88.6 Allergy status to analgesic agent; Z88.5 Allergy status to narcotic agent; E07.9 Disorder of thyroid, unspecified; Z79.890 Hormone replacement therapy; Z87.891 Personal history of nicotine dependence; X50.0XXA Overexertion from strenuous movement or load, initial encounter
CPT/HCPCS: 99283

== ENCOUNTER 2021-09-01 13:15 | Emergency (ER) | payer BC ==
[2021-09-01] MEDS ORDERED: SODIUM CHLORIDE 0.9% 1,000 ML IV STA (14:19)
[2021-09-01] MEDS ORDERED: ONDANSETRON 4 MG/2 ML VIAL IVP STA (14:19)
[2021-09-01] MEDS ORDERED: KETOROLAC 15 MG/ML 1 ML VIAL IVP STA (14:19)
[2021-09-01 14:37] LABS: Basophils % (A) 0 %; Eosinophils # (A) 0.1 k/uL (0-0.7); Eosinophils % (A) 1 %; HCT 42.9 % (34.0-46.0); HGB 14.7 gm/dL (11.4-16.0); Lymphocytes # (A) 0.6 k/uL (1.0-4.8); Lymphocytes % (A) 7 %; MCH 30.2 pg (25.0-35.0); MCHC 34.2 g/dL (31.0-37.0); MCV 88.2 fL (80.0-100.0); Mean Platelet Volume 7.8; Monocytes # (A) 0.3 k/uL (0-1.0); Monocytes % (A) 3 %; Neutrophils # (A) 8.3 k/uL (1.3-7.7); Neutrophils % (A) 88 %; Platelet Count 191 k/uL (150-450); RBC 4.87 m/uL (3.80-5.40); RDW 13.4 % (11.5-15.5); WBC 9.5 k/uL (3.8-10.6)
[2021-09-01 14:46] LABS: ALT 15 U/L (4-34); AST 24 U/L (14-36); African American GFR (CKD) >90 (>60 ml/min/1.73 sqM); Albumin 4.5 g/dL (3.5-5.0); Alkaline Phosphatase 91 U/L (38-126); Amylase 55 U/L (30-110); Anion Gap 11 mmol/L; Blood Urea Nitrogen 10 mg/dL (7-17); Calcium 9.6 mg/dL (8.4-10.2); Carbon Dioxide 21 mmol/L (22-30); Chloride 105 mmol/L (98-107); Glucose 149 mg/dL (74-99); Lipase 49 U/L (23-300); Non-African American GFR(CKD) >90 (>60 ml/min/1.73 sqM); Potassium 4.3 mmol/L (3.5-5.1); Sodium 137 mmol/L (137-145); Total Protein 8.3 g/dL (6.3-8.2)
[2021-09-01 15:08] LABS: Appearance,Urine Clear (Clear); Bacteria,Urine Rare /hpf; Bilirubin,Urine Negative (Negative); Blood,Urine Trace (Negative); Color,Urine Yellow; Glucose,Urine (UA) Negative (Negative); Ketones,Urine Negative (Negative); Leukocyte Esterase,Urine Negative (Negative); Mucus,Urine Moderate /hpf; Nitrite,Urine Negative (Negative); Protein,Urine Negative (Negative); RBC,Urine <1 /hpf (0-5); Specific Gravity,Urine 1.022 (1.001-1.035); Squamous Epithelial Cell,Urine 1 /hpf (0-4); Urobilinogen,Urine <2.0 mg/dL (<2.0); WBC,Urine 2 /hpf (0-5)
--- NOTE | 2021-09-01 16:20 | ED ---
Nausea/Vomiting/Diarrhea HPI - General Chief complaint: Nausea/Vomiting/Diarrhea Stated complaint: Vomiting,Diarrhea,Abd Pain Time Seen by Provider: 09/01/21 13:50 Source: patient, RN notes reviewed Mode of arrival: ambulatory Limitations: no limitations - History of Present Illness Initial comments: Patient is a 46-year-old female presenting to emergency Department with complaints of epigastric pain, nausea, vomiting, diarrhea that started earlier today. Patient states she felt fine when she woke up this morning and then when she was at work started coming down with the symptoms. She had multiple episodes of diarrhea and nausea and vomiting. She states she is having pain over her stomach area. She admits to a cholecystectomy, no other abdominal surgeries. She denies being , no dysuria. She denies any fevers or chills, no chest pain or shortness of breath. She has no further complaints. Her vitals are stable upon arrival. - Related Data Home Medications Medication Instructions Recorded Confirmed Levothyroxine Sodium [Synthroid] 50 mcg PO DAILY 07/19/19 11/19/20 Previous Rx's Medication Instructions Recorded Cyclobenzaprine [Flexeril] 10 mg PO TID #20 tab 12/03/19 Ibuprofen [Motrin] 600 mg PO Q6HR PRN #20 tab 12/03/19 Amoxicillin/Potassium Clav 1 tab PO Q12HR #20 tab 05/21/21 [Augmentin 875-125 Tablet] Cyclobenzaprine [Flexeril] 5 mg PO TID PRN #10 tablet 06/21/21 Ondansetron Odt [Zofran Odt] 4 mg PO Q8HR PRN #10 tab 09/01/21 Allergies Allergy/AdvReac Type Severity Reaction Status Date / Time aspirin AdvReac Severe BLOODY Verified 09/01/21 13:47 NOSE/Itching codeine AdvReac Swelling/It Verified 09/01/21 13:47 afshan Review of Systems ROS Statement: Those systems with pertinent positive or pertinent negative responses have been documented in the HPI. ROS Other: All systems not noted in ROS Statement are negative. Past Medical History Past Medical History: Seizure Disorder, Thyroid Disorder Additional Past Medical History / Comment(s): migraines History of Any Multi-Drug Resistant Organisms: None Reported Past Surgical History: Cholecystectomy Past Psychological History: No Psychological Hx Reported Smoking Status: Former smoker Past Alcohol Use History: None Reported Past Drug Use History: None Reported General Exam - General Exam Comments Initial Comments: GENERAL: Patient is well-developed and well-nourished. Patient is nontoxic and in no acute distress. HEAD: Atraumatic, normocephalic. EYES: Pupils equal round and reactive to light, extraocular movements intact, sclera anicteric, conjunctiva are normal. Eyelids were unremarkable. ENT: Oropharynx clear without exudates. Moist mucous membranes. NECK: Normal range of motion, supple without lymphadenopathy or JVD. LUNGS: Unlabored respirations. Breath sounds clear to auscultation bilaterally and equal. No wheezes rales or rhonchi. HEART: Regular rate and rhythm without murmurs, rubs or gallops. ABDOMEN: Soft, epigastric discomfort, no other areas of pain, normoactive bowel sounds. No guarding, no rebound. No masses appreciated. : Deferred MUSCULOSKELETAL: Normal extremities with adequate strength and normal range of motion, no pitting or edema. No clubbing or cyanosis. NEUROLOGICAL: Patient is alert and oriented x 3. SKIN: Warm, Dry, normal turgor, no rashes or lesions noted. Limitations: no limitations Course Vital Signs 09/01/21 13:45 Temperature 96.6 F L Pulse Rate 106 H Respiratory 22 Rate Blood Pressure 115/69 O2 Sat by Pulse 96 Oximetry Medical Decision Making - Medical Decision Making Patient is a 46-year-old female here with nausea, vomiting, diarrhea started abruptly a few hours ago. She is having some epigastric discomfort as well. Her vitals are stable, no fevers, no . Her labs are all within normal limits, no signs of UTI. Patient was given fluids, Toradol and Zofran and has been resting comfortably. Reexamination, she is sleeping. She states her pain is very minimal. I discussed with her this is most likely viral in nature v ersus possible food poisoning. I will send her home with a prescription for Zofran for any additional nausea and vomiting, recommended frequent small sips of fluids. She is agreeable to this plan of care. Return parameters were discussed with her and she verbalized understanding. - Lab Data Result diagrams: 09/01/21 14:32 09/01/21 14:32 Lab Results 09/01/21 09/01/21 09/01/21 Range/Units 14:32 14:32 14:50 WBC 9.5 (3.8-10.6) k/uL RBC 4.87 (3.80-5.40) m/uL Hgb 14.7 (11.4-16.0) gm/dL Hct 42.9 (34.0-46.0) % MCV 88.2 (80.0-100.0) fL MCH 30.2 (25.0-35.0) pg MCHC 34.2 (31.0-37.0) g/dL RDW 13.4 (11.5-15.5) % Plt Count 191 (150-450) k/uL MPV 7.8 Neutrophils % 88 % Lymphocytes % 7 % Monocytes % 3 % Eosinophils % 1 % Basophils % 0 % Neutrophils # 8.3 H (1.3-7.7) k/uL Lymphocytes # 0.6 L (1.0-4.8) k/uL Monocytes # 0.3 (0-1.0) k/uL Eosinophils # 0.1 (0-0.7) k/uL Basophils # 0.0 (0-0.2) k/uL Sodium 137 (137-145) mmol/L Potassium 4.3 (3.5-5.1) mmol/L Chloride 105 (98-107) mmol/L Carbon Dioxide 21 L (22-30) mmol/L Anion Gap 11 mmol/L BUN 10 (7-17) mg/dL Creatinine 0.80 (0.52-1.04) mg/dL Est GFR (CKD-EPI)AfAm >90 (>60 ml/min/1.73 sqM) Est GFR (CKD-EPI)NonAf >90 (>60 ml/min/1.73 sqM) Glucose 149 H (74-99) mg/dL Calcium 9.6 (8.4-10.2) mg/dL Total Bilirubin 1.0 (0.2-1.3) mg/dL AST 24 (14-36) U/L ALT 15 (4-34) U/L Alkaline Phosphatase 91 (38-126) U/L Total Protein 8.3 H (6.3-8.2) g/dL Albumin 4.5 (3.5-5.0) g/dL Amylase 55 (30-110) U/L Lipase 49 (23-300) U/L Urine Color Urine Appearance (Clear) Urine pH (5.0-8.0) Ur Specific [place] (1.001-1.035) Urine Protein (Negative) Urine Glucose (UA) (Negative) Urine Ketones (Negative) Urine Blood (Negative) Urine Nitrite (Negative) Urine Bilirubin (Negative) Urine Urobilinogen (<2.0) mg/dL Ur Leukocyte Esterase (Negative) Urine RBC (0-5) /hpf Urine WBC (0-5) /hpf Ur Squamous Epith Cells (0-4) /hpf Urine Bacteria (None) /hpf Urine Mucus (None) /hpf Urine HCG, Qual Not Detected (Not Detectd) 09/01/21 Range/Units 14:50 WBC (3.8-10.6) k/uL RBC (3.80-5.40) m/uL Hgb (11.4-16.0) gm/dL Hct (34.0-46.0) % MCV (80.0-100.0) fL MCH (25.0-35.0) pg MCHC (31.0-37.0) g/dL RDW (11.5-15.5) % Plt Count (150-450) k/uL MPV Neutrophils % % Lymphocytes % % Monocytes % % Eosinophils % % Basophils % % Neutrophils # (1.3-7.7) k/uL Lymphocytes # (1.0-4.8) k/uL Monocytes # (0-1.0) k/uL Eosinophils # (0-0.7) k/uL Basophils # (0-0.2) k/uL Sodium (137-145) mmol/L Potassium (3.5-5.1) mmol/L Chloride (98-107) mmol/L Carbon Dioxide (22-30) mmol/L Anion Gap mmol/L BUN (7-17) mg/dL Creatinine (0.52-1.04) mg/dL Est GFR (CKD-EPI)AfAm (>60 ml/min/1.73 sqM) Est GFR (CKD-EPI)NonAf (>60 ml/min/1.73 sqM) Glucose (74-99) mg/dL Calcium (8.4-10.2) mg/dL Total Bilirubin (0.2-1.3) mg/dL AST (14-36) U/L ALT (4-34) U/L Alkaline Phosphatase (38-126) U/L Total Protein (6.3-8.2) g/dL Albumin (3.5-5.0) g/dL Amylase (30-110) U/L Lipase (23-300) U/L Urine Color Yellow Urine Appearance Clear (Clear) Urine pH 5.0 (5.0-8.0) Ur Specific [place] 1.022 (1.001-1.035) Urine Protein Negative (Negative) Urine Glucose (UA) Negative (Negative) Urine Ketones Negative (Negative) Urine Blood Trace H (Negative) Urine Nitrite Negative (Negative) Urine Bilirubin Negative (Negative) Urine Urobilinogen <2.0 (<2.0) mg/dL Ur Leukocyte Esterase Negative (Negative) Urine RBC <1 (0-5) /hpf Urine WBC 2 (0-5) /hpf Ur Squamous Epith Cells 1 (0-4) /hpf Urine Bacteria Rare H (None) /hpf Urine Mucus Moderate H (None) /hpf Urine HCG, Qual (Not Detectd) Disposition Clinical Impression: Nausea vomiting and diarrhea, Abdominal pain Disposition: HOME SELF-CARE Condition: Stable Instructions (If sedation given, give patient instructions): Acute Nausea and Vomiting (ED) Additional Instructions: Please return to the Emergency Department if symptoms worsen or any other concerns. May take Zofran every 8 hours for any additional nausea or vomiting. Follow-up with your primary care as needed. Prescriptions: Ondansetron Odt [Zofran Odt] 4 mg PO Q8HR PRN #10 tab PRN Reason: Nausea Is patient prescribed a controlled substance at d/c from ED?: No Referrals: Dorinda Pierce MD [Primary Care Provider] - 1-2 days Time of Disposition: 16:20
[2021-09-01 16:43] VITALS: BP 110/71; PULSE 97; RESP 20; TEMP 97.9
== END 2021-09-01 16:30 | disposition home or self-care (01) ==
LOC: EC 13:15
DX: R10.13 Epigastric pain (principal); R19.7 Diarrhea, unspecified; R11.2 Nausea with vomiting, unspecified; E07.9 Disorder of thyroid, unspecified; Z87.891 Personal history of nicotine dependence; Z88.5 Allergy status to narcotic agent; Z88.6 Allergy status to analgesic agent; Z79.890 Hormone replacement therapy
CPT/HCPCS: 36415; 80053; 82150; 83690; 85025; 81001; 81025; 99284; 96374; 96375; 96361; J2405; J1885

== ENCOUNTER 2021-11-29 03:50 | Emergency (ER) | payer BC ==
[2021-11-29 03:58] VITALS: TEMP 97.6
[2021-11-29] MEDS ORDERED: MAG HYDROX/AL HYDROX/SIMETH 30 ML, HYOSCYAMINE ELIXIR 10 ML, LIDOCAINE VISCOUS 2% 10 ML PO STA ×3 (04:57)
[2021-11-29 05:02] LABS: Basophils # (A) 0.1 k/uL (0-0.2); Basophils % (A) 1 %; Eosinophils # (A) 0.2 k/uL (0-0.7); Eosinophils % (A) 3 %; HCT 36.3 % (34.0-46.0); HGB 12.2 gm/dL (11.4-16.0); Lymphocytes # (A) 2.4 k/uL (1.0-4.8); Lymphocytes % (A) 38 %; MCHC 33.7 g/dL (31.0-37.0); Mean Platelet Volume 7.8; Monocytes # (A) 0.2 k/uL (0-1.0); Monocytes % (A) 3 %; Neutrophils # (A) 3.4 k/uL (1.3-7.7); Neutrophils % (A) 52 %; Platelet Count 224 k/uL (150-450); RBC 3.94 m/uL (3.80-5.40); RDW 15.3 % (11.5-15.5); WBC 6.4 k/uL (3.8-10.6)
[2021-11-29 05:04] LABS: Albumin 4.1 g/dL (3.5-5.0); Potassium 3.8 mmol/L (3.5-5.1); Total Bilirubin 0.6 mg/dL (0.2-1.3); Total Protein 7.8 g/dL (6.3-8.2)
[2021-11-29 05:17] LABS: Appearance,Urine Cloudy (Clear); Bilirubin,Urine Negative (Negative); Blood,Urine Negative (Negative); Color,Urine Yellow; Glucose,Urine (UA) Negative (Negative); Ketones,Urine Negative (Negative); Leukocyte Esterase,Urine Trace (Negative); Mucus,Urine Occasional /hpf; Nitrite,Urine Negative (Negative); Protein,Urine Trace (Negative); RBC,Urine 2 /hpf (0-5); Squamous Epithelial Cell,Urine 7 /hpf (0-4); WBC,Urine 3 /hpf (0-5)
--- NOTE | 2021-11-29 06:52 | ED ---
Abdominal Pain HPI - General Chief Complaint: Abdominal Pain Stated Complaint: Abdominal pain Time Seen by Provider: 11/29/21 04:26 Source: patient Mode of arrival: ambulatory Limitations: no limitations - History of Present Illness MD Complaint: abdominal pain Onset/Timin -: days(s) Location: LUQ, RUQ, epigastric Radiation: none Migration to: no migration Severity: moderate Quality: aching Consistency: constant Improves With: nothing Worsens With: nothing Associated Symptoms: nausea - Related Data Home Medications Medication Instructions Recorded Confirmed Levothyroxine Sodium [Synthroid] 50 mcg PO DAILY 07/19/19 11/19/20 Previous Rx's Medication Instructions Recorded Cyclobenzaprine [Flexeril] 10 mg PO TID #20 tab 12/03/19 Ibuprofen [Motrin] 600 mg PO Q6HR PRN #20 tab 12/03/19 Amoxicillin/Potassium Clav 1 tab PO Q12HR #20 tab 05/21/21 [Augmentin 875-125 Tablet] Cyclobenzaprine [Flexeril] 5 mg PO TID PRN #10 tablet 06/21/21 Ondansetron Odt [Zofran Odt] 4 mg PO Q8HR PRN #10 tab 09/01/21 Famotidine [Pepcid] 20 mg PO BID #14 tablet 11/29/21 Ondansetron Odt [Zofran ODT] 4 mg PO Q8HR PRN #10 tab 11/29/21 Allergies Allergy/AdvReac Type Severity Reaction Status Date / Time aspirin AdvReac Severe BLOODY Verified 11/29/21 03:58 NOSE/Itching codeine AdvReac Swelling/It Verified 11/29/21 03:58 afshan Review of Systems ROS Statement: Those systems with pertinent positive or pertinent negative responses have been documented in the HPI. ROS Other: All systems not noted in ROS Statement are negative. Constitutional: Denies: fever, chills Respiratory: Denies: cough, dyspnea Cardiovascular: Denies: chest pain, palpitations Gastrointestinal: Reports: abdominal pain, nausea. Denies: vomiting, diarrhea, constipation Genitourinary: Denies: dysuria, hematuria Musculoskeletal: Denies: back pain Skin: Denies: rash Neurological: Denies: headache, weakness, numbness Past Medical History Past Medical History: Seizure Disorder, Thyroid Disorder Additional Past Medical History / Comment(s): migraines History of Any Multi-Drug Resistant Organisms: None Reported Past Surgical History: Cholecystectomy Past Psychological History: No Psychological Hx Reported Smoking Status: Former smoker Past Alcohol Use History: None Reported Past Drug Use History: None Reported General Exam Limitations: no limitations General appearance: alert, in no apparent distress Head exam: Present: atraumatic, normocephalic Eye exam: Present: normal appearance. Absent: scleral icterus, conjunctival injection Respiratory exam: Present: normal lung sounds bilaterally. Absent: respiratory distress, wheezes, rales, rhonchi, stridor Cardiovascular Exam: Present: regular rate, normal rhythm, normal heart sounds. Absent: systolic murmur, diastolic murmur, rubs, gallop GI/Abdominal exam: Present: soft. Absent: distended, tenderness, guarding, rebound, rigid, mass, pulsatile mass, hernia Extremities exam: Present: normal inspection, normal capillary refill. Absent: pedal edema, calf tenderness Back exam: Present: normal inspection. Absent: CVA tenderness (R), CVA tenderness (L) Neurological exam: Present: alert Skin exam: Present: warm, dry, intact, normal color. Absent: rash Course Vital Signs 11/29/21 11/29/21 03:54 07:32 Temperature 97.6 F Pulse Rate 76 70 Respiratory 22 18 Rate Blood Pressure 114/86 102/72 O2 Sat by Pulse 96 100 Oximetry Medical Decision Making - Lab Data Result diagrams: 11/29/21 04:44 11/29/21 04:44 Lab Results 11/29/21 11/29/21 11/29/21 Range/Units 04:44 04:44 04:44 WBC 6.4 (3.8-10.6) k/uL RBC 3.94 (3.80-5.40) m/uL Hgb 12.2 (11.4-16.0) gm/dL Hct 36.3 (34.0-46.0) % MCV 92.0 (80.0-100.0) fL MCH 31.0 (25.0-35.0) pg MCHC 33.7 (31.0-37.0) g/dL RDW 15.3 (11.5-15.5) % Plt Count 224 (150-450) k/uL MPV 7.8 Neutrophils % 52 % Lymphocytes % 38 % Monocytes % 3 % Eosinophils % 3 % Basophils % 1 % Neutrophils # 3.4 (1.3-7.7) k/uL Lymphocytes # 2.4 (1.0-4.8) k/uL Monocytes # 0.2 (0-1.0) k/uL Eosinophils # 0.2 (0-0.7) k/uL Basophils # 0.1 (0-0.2) k/uL Sodium 137 (137-145) mmol/L Potassium 3.8 (3.5-5.1) mmol/L Chloride 103 (98-107) mmol/L Carbon Dioxide 28 (22-30) mmol/L Anion Gap 6 mmol/L BUN 15 (7-17) mg/dL Creatinine 1.17 H (0.52-1.04) mg/dL Est GFR (CKD-EPI)AfAm 66 (>60 ml/min/1.73 sqM) Est GFR (CKD-EPI)NonAf 57 (>60 ml/min/1.73 sqM) Glucose 96 (74-99) mg/dL Calcium 9.0 (8.4-10.2) mg/dL Total Bilirubin 0.6 (0.2-1.3) mg/dL AST 67 H (14-36) U/L ALT 28 (4-34) U/L Alkaline Phosphatase 86 (38-126) U/L Total Protein 7.8 (6.3-8.2) g/dL Albumin 4.1 (3.5-5.0) g/dL Amylase 105 (30-110) U/L Lipase 172 (23-300) U/L Urine Color Yellow Urine Appearance Cloudy H (Clear) Urine pH 6.0 (5.0-8.0) Ur Specific [place] 1.030 (1.001-1.035) Urine Protein Trace H (Negative) Urine Glucose (UA) Negative (Negative) Urine Ketones Negative (Negative) Urine Blood Negative (Negative) Urine Nitrite Negative (Negative) Urine Bilirubin Negative (Negative) Urine Urobilinogen 2.0 (<2.0) mg/dL Ur Leukocyte Esterase Trace H (Negative) Urine RBC 2 (0-5) /hpf Urine WBC 3 (0-5) /hpf Ur Squamous Epith Cells 7 H (0-4) /hpf Urine Mucus Occasional H (None) /hpf Disposition Clinical Impression: Gastritis, Epigastric pain Disposition: HOME SELF-CARE Condition: Good Instructions (If sedation given, give patient instructions): Abdominal Pain (ED) Prescriptions: Famotidine [Pepcid] 20 mg PO BID #14 tablet Ondansetron Odt [Zofran ODT] 4 mg PO Q8HR PRN #10 tab PRN Reason: Nausea Is patient prescribed a controlled substance at d/c from ED?: No Referrals: Dorinda Pierce MD [Primary Care Provider] - 1-2 days
[2021-11-29 07:34] VITALS: BP 102/72; PULSE 70; RESP 18
== END 2021-11-29 07:34 | disposition home or self-care (01) ==
LOC: EC 03:50
DX: R10.13 Epigastric pain (principal); R11.0 Nausea; Z87.891 Personal history of nicotine dependence; Z88.6 Allergy status to analgesic agent; Z88.5 Allergy status to narcotic agent
CPT/HCPCS: 36415; 80053; 81001; 82150; 83690; 85025; 99284

== ENCOUNTER 2021-12-21 17:17 | Emergency (ER) | payer BC ==
[2021-12-21 17:33] VITALS: RESP 18; TEMP 99.7
--- NOTE | 2021-12-21 20:06 | ED ---
General Adult HPI - General Chief complaint: Abdominal Pain Stated complaint: abd pain Time Seen by Provider: 12/21/21 19:39 Source: patient Mode of arrival: ambulatory Limitations: no limitations - History of Present Illness Initial comments: Dictation was produced using [employer] dictation software. please excuse any grammatical, word or spelling errors. Chief Complaint: 46-year-old male presents with epigastric abdominal pain History of Present Illness: Is a 46-year-old female she has past medical history cholecystectomy, seizure disorder and thyroid disease. States that she was seen here in emergency department 3 weeks ago for the same complaint. States that her pain is epigastric. She follow-up with her primary care doctor told her she had elevated liver enzymes. Continue to monitor it however she is instructed to go to the emergency department if her symptoms recurred. Patient states that today her symptoms increased. States that the pain is epigastric. Nonradiating. Not associated with vomiting. Patient does have some mild nausea. No fever. No diarrhea. The ROS documented in this emergency department record has been reviewed and confirmed by me. Those systems with pertinent positive or negative responses have been documented in the HPI. All other systems are other negative and/or noncontributory. PHYSICAL EXAM: General Impression: Alert and oriented x3, not in acute distress HEENT: Normocephalic atraumatic, extra-ocular movements intact, pupils equal and reactive to light bilaterally, mucous membranes moist. Cardiovascular: Heart regular rate and rhythm Chest: Able to complete full sentences, no retractions, no tachypnea Abdomen: abdomen soft, mild palpatory tenderness to the epigastric area., non- distended, no organomegaly Musculoskeletal: Pulses present and equal in all extremities, no peripheral edema Motor: no focal deficits noted Neurological: CN II-XII grossly intact, no focal motor or sensory deficits noted Skin: Intact with no visualized rashes Psych: Normal affect and mood ED course: 46-year-old female presents to the emergency department for epigastric abdominal pain. Vital signs upon arrival are within acceptable limits. Laboratory evaluation obtained. CBC, metabolic panel is unremarkable. Urinalysis concerning for hemorrhagic cystitis. Computed tomography scan abdomen and pelvis shows 6 mm right renal pelvic calculus with mild ectasia without overt hydronephrosis. Patient's clinical presentation is not colicky. History of present illness does not suggest kidney stone. States her pain is epigastric. However her urine and CT imaging does suggest nephrolithiasis. Patient evaluated at bedside at 9:52 PM found to be in stable medical condition. She sleeping comfortably as no acute distress. Patient is awoken and reevaluated. Patient's well-appearing. She does still have some mild palpatory tenderness to the right upper quadrant. At this point there is no clear cause of what is causing patient's symptoms. She does however appear to be stable for discharge. Patient's symptoms do not suggest kidney stone given that its anter ior right upper quadrant abdominal pain as opposed to CVA pain flank pain or groin pain. Said her pain is not colicky in nature either. She denies any urinary symptoms. This was a dirty catch however patient urine cultures pending. At this point given the patient having urinary symptoms will wait on the cultures. Her abnormal urine could be secondary to kidney stone. Patient agreeable discharge. She is advised follow-up with primary care doctor. - Related Data Previous Rx's Medication Instructions Recorded Famotidine [Pepcid] 20 mg PO BID #14 tablet 11/29/21 Ondansetron Odt [Zofran ODT] 4 mg PO Q8HR PRN #10 tab 11/29/21 Allergies Allergy/AdvReac Type Severity Reaction Status Date / Time aspirin AdvReac Severe BLOODY Verified 12/21/21 20:58 NOSE/Itching codeine AdvReac Swelling/It Verified 12/21/21 20:58 afshan Review of Systems ROS Statement: Those systems with pertinent positive or pertinent negative responses have been documented in the HPI. ROS Other: All systems not noted in ROS Statement are negative. Past Medical History Past Medical History: Seizure Disorder, Thyroid Disorder Additional Past Medical History / Comment(s): migraines History of Any Multi-Drug Resistant Organisms: None Reported Past Surgical History: Cholecystectomy Past Psychological History: No Psychological Hx Reported Smoking Status: Former smoker Past Alcohol Use History: None Reported Past Drug Use History: None Reported General Exam Limitations: no limitations Course Vital Signs 12/21/21 17:28 Temperature 99.7 F H Pulse Rate 82 Respiratory 18 Rate Blood Pressure 138/81 O2 Sat by Pulse 97 Oximetry Medical Decision Making - Lab Data Result diagrams: 12/21/21 20:12 12/21/21 20:12 Lab Results 12/21/21 12/21/21 12/21/21 Range/Units 20:12 20:12 20:12 WBC 8.4 (3.8-10.6) k/uL RBC 3.88 (3.80-5.40) m/uL Hgb 12.3 (11.4-16.0) gm/dL Hct 36.4 (34.0-46.0) % MCV 94.0 (80.0-100.0) fL MCH 31.8 (25.0-35.0) pg MCHC 33.8 (31.0-37.0) g/dL RDW 15.4 (11.5-15.5) % Plt Count 243 (150-450) k/uL MPV 7.9 Neutrophils % 57 % Lymphocytes % 36 % Monocytes % 3 % Eosinophils % 2 % Basophils % 1 % Neutrophils # 4.8 (1.3-7.7) k/uL Lymphocytes # 3.0 (1.0-4.8) k/uL Monocytes # 0.3 (0-1.0) k/uL Eosinophils # 0.1 (0-0.7) k/uL Basophils # 0.1 (0-0.2) k/uL Sodium (137-145) mmol/L Potassium (3.5-5.1) mmol/L Chloride (98-107) mmol/L Carbon Dioxide (22-30) mmol/L Anion Gap mmol/L BUN (7-17) mg/dL Creatinine (0.52-1.04) mg/dL Est GFR (CKD-EPI)AfAm (>60 ml/min/1.73 sqM) Est GFR (CKD-EPI)NonAf (>60 ml/min/1.73 sqM) Glucose (74-99) mg/dL Calcium (8.4-10.2) mg/dL Total Bilirubin (0.2-1.3) mg/dL AST (14-36) U/L ALT (4-34) U/L Alkaline Phosphatase (38-126) U/L Troponin I (0.000-0.034) ng/mL Total Protein (6.3-8.2) g/dL Albumin (3.5-5.0) g/dL Lipase (23-300) U/L Urine Color Yellow Urine Appearance Cloudy H (Clear) Urine pH 5.5 (5.0-8.0) Ur Specific [place] 1.027 (1.001-1.035) Urine Protein 1+ H (Negative) Urine Glucose (UA) Negative (Negative) Urine Ketones Trace H (Negative) Urine Blood Large H (Negative) Urine Nitrite Negative (Negative) Urine Bilirubin Negative (Negative) Urine Urobilinogen <2.0 (<2.0) mg/dL Ur Leukocyte Esterase Large H (Negative) Urine RBC 154 H (0-5) /hpf Urine WBC 126 H (0-5) /hpf Urine WBC Clumps Rare H (None) /hpf Ur Squamous Epith Cells 22 H (0-4) /hpf Amorphous Sediment Rare H (None) /hpf Urine Bacteria Rare H (None) /hpf Urine Mucus Few H (None) /hpf Urine HCG, Qual Not Detected (Not Detectd) 12/21/21 12/21/21 Range/Units 20:12 20:12 WBC (3.8-10.6) k/uL RBC (3.80-5.40) m/uL Hgb (11.4-16.0) gm/dL Hct (34.0-46.0) % MCV (80.0-100.0) fL MCH (25.0-35.0) pg MCHC (31.0-37.0) g/dL RDW (11.5-15.5) % Plt Count (150-450) k/uL MPV Neutrophils % % Lymphocytes % % Monocytes % % Eosinophils % % Basophils % % Neutrophils # (1.3-7.7) k/uL Lymphocytes # (1.0-4.8) k/uL Monocytes # (0-1.0) k/uL Eosinophils # (0-0.7) k/uL Basophils # (0-0.2) k/uL Sodium 137 (137-145) mmol/L Potassium 3.5 (3.5-5.1) mmol/L Chloride 103 (98-107) mmol/L Carbon Dioxide 25 (22-30) mmol/L Anion Gap 9 mmol/L BUN 14 (7-17) mg/dL Creatinine 1.21 H (0.52-1.04) mg/dL Est GFR (CKD-EPI)AfAm 63 (>60 ml/min/1.73 sqM) Est GFR (CKD-EPI)NonAf 55 (>60 ml/min/1.73 sqM) Glucose 156 H (74-99) mg/dL Calcium 9.2 (8.4-10.2) mg/dL Total Bilirubin 0.5 (0.2-1.3) mg/dL AST 71 H (14-36) U/L ALT 26 (4-34) U/L Alkaline Phosphatase 69 (38-126) U/L Troponin I <0.012 (0.000-0.034) ng/mL Total Protein 8.0 (6.3-8.2) g/dL Albumin 4.3 (3.5-5.0) g/dL Lipase 198 (23-300) U/L Urine Color Urine Appearance (Clear) Urine pH (5.0-8.0) Ur Specific [place] (1.001-1.035) Urine Protein (Negative) Urine Glucose (UA) (Negative) Urine Ketones (Negative) Urine Blood (Negative) Urine Nitrite (Negative) Urine Bilirubin (Negative) Urine Urobilinogen (<2.0) mg/dL Ur Leukocyte Esterase (Negative) Urine RBC (0-5) /hpf Urine WBC (0-5) /hpf Urine WBC Clumps (None) /hpf Ur Squamous Epith Cells (0-4) /hpf Amorphous Sediment (None) /hpf Urine Bacteria (None) /hpf Urine Mucus (None) /hpf Urine HCG, Qual (Not Detectd) Disposition Clinical Impression: Abdominal pain Disposition: HOME SELF-CARE Condition: Good Instructions (If sedation given, give patient instructions): Abdominal Pain (ED) Is patient prescribed a controlled substance at d/c from ED?: No Referrals: Deb Ríos MD [Primary Care Provider] - 1-2 days
[2021-12-21 20:28] LABS: Basophils # (A) 0.1 k/uL (0-0.2); Basophils % (A) 1 %; Eosinophils # (A) 0.1 k/uL (0-0.7); Eosinophils % (A) 2 %; HCT 36.4 % (34.0-46.0); HGB 12.3 gm/dL (11.4-16.0); Lymphocytes % (A) 36 %; MCH 31.8 pg (25.0-35.0); MCHC 33.8 g/dL (31.0-37.0); Mean Platelet Volume 7.9; Monocytes # (A) 0.3 k/uL (0-1.0); Monocytes % (A) 3 %; Neutrophils # (A) 4.8 k/uL (1.3-7.7); Neutrophils % (A) 57 %; Platelet Count 243 k/uL (150-450); RBC 3.88 m/uL (3.80-5.40); RDW 15.4 % (11.5-15.5); WBC 8.4 k/uL (3.8-10.6)
[2021-12-21 20:32] LABS: Amorphous Sediment,Urine Rare /hpf; Appearance,Urine Cloudy (Clear); Bacteria,Urine Rare /hpf; Bilirubin,Urine Negative (Negative); Blood,Urine Large (Negative); Color,Urine Yellow; Glucose,Urine (UA) Negative (Negative); Ketones,Urine Trace (Negative); Leukocyte Esterase,Urine Large (Negative); Mucus,Urine Few /hpf; Nitrite,Urine Negative (Negative); PH, Urine 5.5 (5.0-8.0); Protein,Urine 1+ (Negative); RBC,Urine 154 /hpf (0-5); Specific Gravity,Urine 1.027 (1.001-1.035); Squamous Epithelial Cell,Urine 22 /hpf (0-4); Urobilinogen,Urine <2.0 mg/dL (<2.0); WBC,Urine 126 /hpf (0-5)
[2021-12-21 20:38] LABS: Albumin 4.3 g/dL (3.5-5.0); Calcium 9.2 mg/dL (8.4-10.2); Potassium 3.5 mmol/L (3.5-5.1); Total Bilirubin 0.5 mg/dL (0.2-1.3)
--- NOTE | 2021-12-21 21:11 | CT ---
EXAMINATION TYPE: CT abdomen pelvis w con DATE OF EXAM: 12/21/2021 COMPARISON: 09/20/2021 HISTORY: Epigastric/abdominal pain CT DLP: 1059 mGycm Automated exposure control for dose reduction was used. TECHNIQUE: Helical acquisition of images was performed from the lung bases through the pelvis. CONTRAST: Performed without Oral Contrast and with IV Contrast, patient injected with 80 mL of Isovue 300. FINDINGS: LUNG BASES: No significant abnormality is appreciated. LIVER/GB: No acute abnormality is appreciated. Hepatic steatosis and cholecystectomy seen. PANCREAS: No significant abnormality is seen. SPLEEN: No significant abnormality is seen. ADRENALS: No significant abnormality is seen. KIDNEYS: 6 mm right renal pelvic calculus with renal pelvic ectasia without overt hydronephrosis. Add itional punctate nonobstructing right renal calculus. No left hydronephrosis or nephrolithiasis. FREE AIR: No free air is visualized. RETROPERITONEAL ADENOPATHY: None visualized REPRODUCTIVE ORGANS: No significant abnormality is seen URINARY BLADDER: No significant abnormality is seen. PELVIC ADENOPATHY: None visualized. OSSEOUS STRUCTURES: No significant abnormality is seen. BOWEL: No significant abnormality is seen. OTHER: None IMPRESSION: 6 MM RIGHT RENAL PELVIC CALCULUS WITH MILD ECTASIA WITHOUT OVERT HYDRONEPHROSIS. OTHERWISE NO ACUTE ABNORMALITY. CHOLECYSTECTOMY AND HEPATIC STEATOSIS.
[2021-12-21] MEDS ORDERED: KETOROLAC 30 MG/ML 1 ML VIAL IVP STA (21:44)
[2021-12-21] MEDS ORDERED: ACET/COD 300 MG/30 MG STARTER PACK 6 TAB BTL PO STA (21:53)
[2021-12-21 22:10] VITALS: BP 124/81; PULSE 88
== END 2021-12-21 22:13 | disposition home or self-care (01) ==
LOC: EC 17:17
DX: R10.13 Epigastric pain (principal); Z87.891 Personal history of nicotine dependence; Z88.6 Allergy status to analgesic agent; Z88.5 Allergy status to narcotic agent
CPT/HCPCS: 36415; 93005; 80053; 83690; 84484; 85025; 81001; 81025; 74177; 99284; 96374; J1885; Q9967

== ENCOUNTER → 2022-02-07 | Outpatient (CLI) | payer BC ==
--- NOTE | 2022-02-07 16:13 | US ---
EXAMINATION TYPE: US thyroid st tissue head/neck DATE OF EXAM: 02/07/2022 COMPARISON: 05/13/2020 CLINICAL HISTORY: 47-year-old female E04.1. f/u exam, on meds TECHNIQUE: Multiple sonographic images of the thyroid gland are obtained. GLAND SIZE: Right Lobe: 3.2 x 0.7 x 1.3 cm Overall Parenchyma: heterogenous Left Lobe: 3.6 x 1.1 x 1.2 cm Overall Parenchyma: heterogeneous Isthmus Thickness: 0.3 cm NODULES RIGHT: # of nodules measured on right: 0 LEFT: # of nodules measured on left: 0 ISTHMUS: # of nodules measured in the isthmus: 0 Bilateral neck scanned, no evidence of lymphadenopathy. IMPRESSION: Heterogeneous thyroid gland could reflect chronic hypothyroidism or goiter. No discrete nodules are s een.
== END | disposition home or self-care (01) ==
LOC: RADUSWWP 13:43
PROVIDERS: ATTEND Family Medicine
DX: E04.1 Nontoxic single thyroid nodule (principal)
CPT/HCPCS: 76536

== ENCOUNTER 2022-03-27 11:30 | Emergency (ER) | payer BC ==
[2022-03-27 12:05] VITALS: RESP 20; TEMP 98
[2022-03-27] MEDS ORDERED: MORPHINE SULFATE 4 MG/ML SYRINGE IM STA (12:30)
--- NOTE | 2022-03-27 12:51 | XR ---
EXAMINATION TYPE: XR knee complete RT DATE OF EXAM: 03/27/2022 COMPARISON: None HISTORY: Pain, fall TECHNIQUE: Three-view right knee FINDINGS: No joint effusion is evident. No acute fracture or dislocation is evident. Joint spaces darvin ear preserved. Follow up exams can be performed 7-10 days from acute trauma for continued pain. MRI could be perform ed if soft tissue evaluation would be of benefit. IMPRESSION: 1. No acute osseous abnormality right knee
--- NOTE | 2022-03-27 13:02 | ED ---
General Adult HPI - General Chief complaint: Fall Stated complaint: Fall Knee pain Time Seen by Provider: 03/27/22 12:09 Source: patient Mode of arrival: wheelchair Limitations: no limitations - History of Present Illness Initial comments: This 47-year-old female presents emergency Department with right knee pain radiating to her. Patient states she was standing in the windowsill trying to put in the window screen when she slipped and landed directly onto her right knee. Patient states she landed on concrete. Patient states this happened about one hour ago. Patient denies any past right knee injury or surgery. Patient describes the pain as aching and states it is currently 10/10. Patient denies taking any medication for pain relief. Patient states the pain is worse behind her knee and radiates down the posterior side of her right leg. Patient states she is also experiencing some pain on bilateral sides of right knee. Patient denies any loss of sensation to right lower extremity. Patient denies any signs of knee dislocation. Patient states she did feel a pop when she landed on her right knee. Patient does have limited range of motion and is only able to slightly flex at the right knee as it causes increased pain with movement. Patient states the pain does increase when she tries to bear weight on her right lower extremity. Patient denies any chest pain, shortness of breath, abdominal pain, nausea, vomiting, change in bowel or bladder, change in appetite, lightheadedness, dizziness, fever, back pain, saddle anesthesia, bowel/bladder incontinence or retention. She denies any right hip, thigh, ankle or foot pain. She denies any erythema or warmth present on right lower extremity. - Related Data Home Medications Medication Instructions Recorded Confirmed Levothyroxine Sodium [Synthroid] 200 mcg PO DAILY 03/27/22 03/27/22 Previous Rx's Medication Instructions Recorded HYDROcodone/APAP 5-325MG [[place] 1 tab PO Q6HR PRN 3 Days #12 tab 03/27/22 5-325] Allergies Allergy/AdvReac Type Severity Reaction Status Date / Time aspirin AdvReac Severe BLOODY Verified 03/27/22 13:44 NOSE/Itching codeine AdvReac Swelling/It Verified 03/27/22 13:44 afshan Review of Systems ROS Statement: Those systems with pertinent positive or pertinent negative responses have been documented in the HPI. ROS Other: All systems not noted in ROS Statement are negative. Past Medical History Past Medical History: Seizure Disorder, Thyroid Disorder Additional Past Medical History / Comment(s): migraines History of Any Multi-Drug Resistant Organisms: None Reported Past Surgical History: Cholecystectomy Past Psychological History: No Psychological Hx Reported Smoking Status: Former smoker Past Alcohol Use History: None Reported Past Drug Use History: None Reported General Exam Limitations: no limitations General appearance: alert, in no apparent distress Head exam: Present: atraumatic, normocephalic, normal inspection Eye exam: Present: normal appearance, PERRL, EOMI. Absent: scleral icterus, conjunctival injection, periorbital swelling ENT exam: Present: normal exam, mucous membranes moist Neck exam: Present: normal inspection, full ROM. Absent: tenderness, meningismus, lymphadenopathy Respiratory exam: Present: normal lung sounds bilaterally. Absent: respiratory distress, wheezes, rales, rhonchi, stridor, chest wall tenderness Cardiovascular Exam: Present: regular rate, normal rhythm, normal heart sounds. Absent: systolic murmur, diastolic murmur, rubs, gallop, clicks GI/Abdominal exam: Present: soft, normal bowel sounds. Absent: distended, tenderness, guarding, rebound, rigid Extremities exam: Present: normal inspection, full ROM (Patient able to slightly flex at right knee but does cause pain to posterior, lateral and medial sides of right knee. Patient with pain to right knee when asked to push and pull right lower extremity against resistance.), tenderness (Patient with tenderness to palpation to posterior right knee along with lateral and medial sides of right knee. Patient with limited range of motion and is able to slightly flex right knee but does cause increased pain. DP pulses palpable bilaterally. No sign of neurovascular deficits present. ), normal capillary refill, calf tenderness (Patient with slight pain to palpation of right calf- patient states pain radiates from posterior right knee down to right calf. No erythema or warmth present. Patient with full sensation to right lower extremity.). Absent: pedal edema, joint swelling Back exam: Present: full ROM. Absent: CVA tenderness (R), CVA tenderness (L), paraspinal tenderness, vertebral tenderness Neurological exam: Present: alert, oriented X3, CN II-XII intact. Absent: normal gait (Patient states she is unable to bear weight on right lower extremity. Patient does refuse to stand and try to bear weight on right lower extremity) Psychiatric exam: Present: normal affect, normal mood Skin exam: Present: warm, dry, intact, normal color. Absent: rash Course Vital Signs 03/27/22 03/27/22 12:01 13:36 Temperature 98 F Pulse Rate 99 90 Respiratory 20 20 Rate Blood Pressure 110/75 129/98 O2 Sat by Pulse 99 100 Oximetry Medical Decision Making - Medical Decision Making This 47-year-old female presents emergency Department with right knee pain that began this morning after slipping off of a windowsill and falling directly onto her right knee. Patient without any neurovascular deficits. Patient denies any going either lateral or medial- denies any sign or symptoms of knee dislocation. X-ray knee right sunrise view impression: Normal sunrise view of right knee. Joint space is preserved. No acute fracture or dislocation is evident. X-ray right knee complete impression: No acute osseous abnormality of right knee. No joint effusion is evident. No acute fracture dislocation is evident. Joint spaces appear preserved. Patient given [place] 3 days for pain relief. Patient was given crutches and instructed not to bear weight on right lower extremity until seen by orthopedics. Instructed patient to rest, ice and elevate right knee. Orthopedics referral given to patient. Patient instructed to follow up with orthopedics in next 1-2 days. [place] bandage applied to right knee. Strict return precautions were discussed. Patient verbally agreed to plan. Patient sent home in stable condition. Case discussed in detail with my attending, . Disposition Clinical Impression: Right knee pain, Fall Disposition: HOME SELF-CARE Condition: Stable Instructions (If sedation given, give patient instructions): Knee Pain (ED) Additional Instructions: Please follow-up with orthopedics in next 1-2 days. Use crutches and do not bear weight on right lower extremity until seen by orthopedics. Follow-up with primary care provider next 1-2 days. Rest, ice and elevate right knee. Take [place] as directed. Prescriptions: HYDROcodone/APAP 5-325MG [[place] 5-325] 1 tab PO Q6HR PRN 3 Days #12 tab PRN Reason: Pain Scale 9 To 10 Is patient prescribed a controlled substance at d/c from ED?: Yes If prescribed controlled substance>3 days was MAPS reviewed?: Prescribed <3 Days If opioid is for acute pain is fill amount 7 days or less?: Yes Referrals: Aman Maria MD [Primary Care Provider] - 1-2 days Diann Delacruz NPC [Nurse Practitioner] - 1-2 days Candi Mcbride DO [Doctor of Osteopathic Medicine] - 1-2 days Time of Disposition: 14:09
--- NOTE | 2022-03-27 13:44 | XR ---
EXAMINATION TYPE: XR knee limited RT DATE OF EXAM: 03/27/2022 COMPARISON: 03/27/2022 HISTORY: Pain TECHNIQUE: Single sunrise view FINDINGS: Joint spaces preserved. No acute fracture or dislocation is evident. Follow-up studies can be performed 7-10 days from acute trauma for continued pain. IMPRESSION: 1. Normal sunrise view right knee
[2022-03-27] MEDS ORDERED: ONDANSETRON 4 MG TAB PO STA (14:09)
[2022-03-27 16:16] VITALS: BP 104/69; PULSE 91
== END 2022-03-27 16:21 | disposition home or self-care (01) ==
LOC: EC 11:30
DX: M25.561 Pain in right knee (principal); E07.9 Disorder of thyroid, unspecified; Z79.890 Hormone replacement therapy; Z87.891 Personal history of nicotine dependence; W01.0XXA Fall on same level from slipping, tripping and stumbling without subsequent striking against object, initial encounter
CPT/HCPCS: 73560; 73562; 99284; 96372; J2270

== ENCOUNTER 2022-04-06 21:53 | Emergency (ER) | payer BC ==
[2022-04-06 22:31] VITALS: BP 107/73; PULSE 76; RESP 16; TEMP 98.3
[2022-04-07] MEDS ORDERED: ACETAMINOPHEN TAB 500 MG TAB PO STA (00:26)
[2022-04-07] MEDS ORDERED: KETOROLAC 15 MG/ML 1 ML VIAL IM STA (00:26)
[2022-04-07] MEDS ORDERED: CYCLOBENZAPRINE 10MG STARTER 3 TAB BTL PO STA (00:27)
[2022-04-07] MEDS ORDERED: IBUPROFEN 600 MG STARTER PACK 4 TAB BTL PO STA (00:27)
--- NOTE | 2022-04-07 00:33 | ED ---
Extremity Problem HPI - General Chief complaint: Extremity Problem,Nontraumatic Stated complaint: Pain in RT leg Time Seen by Provider: 04/07/22 00:19 Source: patient, RN notes reviewed Mode of arrival: ambulatory Limitations: no limitations - History of Present Illness Initial comments: This is a pleasant 47-year-old female who presents to emergency department stating that she has had her MRI at [facility] canceled several times. Patient frustrated and came to the ER for evaluation. Patient states [facility] today and was instructed to go to the ER. Patient complaining of pain to the anterior aspect of the knee. Patient states she was seen here initially on and diagnosed with knee pain. She was sent over to [facility] and subsequently diagnosed with a patella fracture. Patient has been wearing a knee immobilizer. Patient initially was taking Orr but is ALLERGIC to that medication. She now is on ibuprofen. Last took the ibuprofen at 8 PM. Denies any distal paresthesias. No subsequent injuries. No lower leg edema. [facility] did mention that she should have a venous Doppler done. No headache, no fever or chills, no changes in vision or hearing, no sore throat or difficulty with speech, no neck pain, no chest pain or shortness of breath, no abdominal pain, no nausea or vomiting, no changes in urination or bowel movements, no numbness or tingling, no skin rashes or lesions. - Related Data Home Medications Medication Instructions Recorded Confirmed Levothyroxine Sodium [Synthroid] 200 mcg PO DAILY 03/27/22 03/27/22 Previous Rx's Medication Instructions Recorded HYDROcodone/APAP 5-325MG [Orr 1 tab PO Q6HR PRN 3 Days #12 tab 03/27/22 5-325] Acetaminophen [Tylenol] 500 mg PO Q4-6H PRN #24 tab 04/07/22 Cyclobenzaprine [Flexeril] 10 mg PO TID PRN #20 tab 04/07/22 Ibuprofen [Motrin] 600 mg PO Q8HR PRN #30 tab 04/07/22 Allergies Allergy/AdvReac Type Severity Reaction Status Date / Time aspirin AdvReac Severe BLOODY Verified 04/06/22 22:27 NOSE/Itching codeine AdvReac Swelling/It Verified 04/06/22 22:27 afshan Review of Systems ROS Statement: Those systems with pertinent positive or pertinent negative responses have been documented in the HPI. ROS Other: All systems not noted in ROS Statement are negative. Past Medical History Past Medical History: Seizure Disorder, Thyroid Disorder Additional Past Medical History / Comment(s): migraines History of Any Multi-Drug Resistant Organisms: None Reported Past Surgical History: Cholecystectomy Past Psychological History: No Psychological Hx Reported Smoking Status: Former smoker Past Alcohol Use History: None Reported Past Drug Use History: None Reported General Exam Limitations: no limitations General appearance: alert, in no apparent distress Head exam: Present: atraumatic, normocephalic, normal inspection Eye exam: Present: normal appearance, PERRL, EOMI. Absent: scleral icterus, conjunctival injection, periorbital swelling ENT exam: Present: normal exam, mucous membranes moist Neck exam: Present: normal inspection, full ROM. Absent: tenderness, meningismus, lymphadenopathy Respiratory exam: Present: normal lung sounds bilaterally. Absent: respiratory distress, wheezes, rales, rhonchi, stridor Cardiovascular Exam: Present: regular rate, normal rhythm, normal heart sounds. Absent: systolic murmur, diastolic murmur, rubs, gallop, clicks GI/Abdominal exam: Present: soft, normal bowel sounds. Absent: distended, tenderness, guarding, rebound, rigid Extremities exam: Present: full ROM, normal capillary refill, other (Patient has minimal edema to the anterior aspect of the right knee. There is tenderness to this area. No distal tenderness. Pulses are intact. No pedal edema. No pitting edema. Homans sign is negative. No calf tenderness). Absent: ten derness, pedal edema, joint swelling, calf tenderness Back exam: Present: normal inspection Neurological exam: Present: alert, oriented X3, CN II-XII intact Psychiatric exam: Present: normal affect, normal mood Skin exam: Present: warm, dry, intact, normal color. Absent: rash Course Vital Signs 04/06/22 22:28 Temperature 98.3 F Pulse Rate 76 Respiratory 16 Rate Blood Pressure 107/73 O2 Sat by Pulse 98 Oximetry Medical Decision Making - Medical Decision Making We'll order a venous Doppler as requested by [facility]. Conservative therapy otherwise. Went ahead and acetaminophen and Flexeril to the patient's regimen of ibuprofen. She'll be warned not to take the Flexeril while driving or operating machinery. Patient was told to return to the ER for any signs or symptoms worsen. Told to return immediately if any other problems arise. All questions answered. Treatment plan discussed. Patient in agreement Every effort has been made to ensure accuracy of this dictation. However, due to the limitations of electronic medical records and dictation devices, errors in charting still occur. [employer] Machine Operator, Dr. Thomas - Radiology Data Radiology results: report reviewed, image reviewed Disposition Clinical Impression: Fracture of patella, right, closed, Bakers cyst Disposition: HOME SELF-CARE Condition: Good Instructions (If sedation given, give patient instructions): Patellar Fracture (ED), Knee Immobilizer (ED), Dunlap Cyst (ED) Additional Instructions: Follow-up with your regular physician as directed. Return to the ER immediately if any symptoms worsen, new symptoms arise, or any other problems develop.Continue the knee immobilizer. Call [facility] in the morning for further guidance on obtaining the MRI.Do not drive or operate machinery while taking the Flexeril. Prescriptions: Cyclobenzaprine [Flexeril] 10 mg PO TID PRN #20 tab PRN Reason: Spasms Ibuprofen [Motrin] 600 mg PO Q8HR PRN #30 tab PRN Reason: Pain Acetaminophen [Tylenol] 500 mg PO Q4-6H PRN #24 tab PRN Reason: Pain Is patient prescribed a controlled substance at d/c from ED?: No Referrals: Charlotte Giron DO [Doctor of Osteopathic Medicine] - 1-2 days Time of Disposition: 00:32
--- NOTE | 2022-04-07 01:09 | US ---
EXAMINATION TYPE: US venous doppler duplex LE RT DATE OF EXAM: 04/07/2022 12:52 AM COMPARISON: NONE CLINICAL HISTORY: Right leg pain, status post patella fracture. Patient states she has a patellar fra cture but has not been able to get an MRI. Patient has right knee pain. SIDE PERFORMED: Right TECHNIQUE: The lower extremity deep venous system is examined utilizing real time linear array sonog betsy with graded compression, doppler sonography and color-flow sonography. VESSELS IMAGED: Common Femoral Vein Deep Femoral Vein Greater Saphenous Vein * Femoral Vein Popliteal Vein Small Saphenous Vein * Proximal Calf Veins (* superficial vessels) Right Leg: Negative for DVT. Anechoic fluid filled area with debris seen right popliteal fossa measu ring 3.9 x 0.8 x 1.9 cm. IMPRESSION: No evidence of deep vein thrombosis in the right leg. There is complex popliteal cyst.
== END 2022-04-07 03:52 | disposition home or self-care (01) ==
LOC: EC 21:53
DX: S82.001A Unspecified fracture of right patella, initial encounter for closed fracture (principal); M71.21 Synovial cyst of popliteal space [Baker], right knee; E07.9 Disorder of thyroid, unspecified; G40.909 Epilepsy, unspecified, not intractable, without status epilepticus; Z79.890 Hormone replacement therapy; Z79.899 Other long term (current) drug therapy; Z87.891 Personal history of nicotine dependence; X58.XXXA Exposure to other specified factors, initial encounter
CPT/HCPCS: 96372; 99283

== ENCOUNTER → 2022-04-29 | Outpatient (CLI) | payer BC ==
--- NOTE | 2022-04-29 15:26 | MR ---
EXAMINATION TYPE: MR knee RT wo con DATE OF EXAM: 04/29/2022 COMPARISON: None HISTORY: CONTUSION OF RIGHT KNEE, PAIN R KNEE, EFFUSION Multiplanar multiecho imaging of the right knee with no contrast. There is increased signal on the proton density images across the proximal tibia. This is more extens kraig in the lateral tibial condyle. There is knee joint effusion. The posterior cruciate ligament is i ntact. There is apparent complete tear of the anterior cruciate ligament. Lateral meniscus shows some mild degenerative signal changes without a complete tear. There is a horizontal tear through the pos terior horn of the medial meniscus extending to the superior surface. The collateral ligaments are intact. There is popliteal cyst that measures 4 x 1 cm. IMPRESSION: There is edema in the proximal tibia and probable nondisplaced vertical and horizontal fracture of th e lateral tibial condyle on the posterior aspect. Complete tear anterior cruciate ligament. Horizontal tear of the posterior horn of the medial meniscus. Knee joint effusion and popliteal cyst.
== END | disposition home or self-care (01) ==
LOC: RADMRIMAIN 11:39
PROVIDERS: ATTEND Orthopaedic Surgery Sports Medicine
DX: S80.01XA Contusion of right knee, initial encounter (principal); M25.561 Pain in right knee; M25.461 Effusion, right knee; X58.XXXA Exposure to other specified factors, initial encounter

== ENCOUNTER → 2022-07-07 | Outpatient (CLI) | payer BC ==
--- NOTE | 2022-07-07 13:40 | US ---
EXAMINATION TYPE: US venous doppler duplex LE RT DATE OF EXAM: 07/07/2022 1:25 PM COMPARISON: NONE CLINICAL HISTORY: I80.9 PHLEBITIS AND THROMBOPHLEBITIS M25.561 [employer]. Patient had knee surgery x 8 days ago. Bruising started yesterday. Swelling. On baby aspirin. SIDE PERFORMED: Right TECHNIQUE: The lower extremity deep venous system is examined utilizing real time linear array sonog betsy with graded compression, doppler sonography and color-flow sonography. VESSELS IMAGED: Common Femoral Vein Deep Femoral Vein Greater Saphenous Vein * Femoral Vein Popliteal Vein Small Saphenous Vein * Proximal Calf Veins (* superficial vessels) Right Leg: Negative for DVT IMPRESSION: No evidence for DVT at this time.
== END | disposition home or self-care (01) ==
LOC: RADUSWWP 12:56
PROVIDERS: ATTEND Orthopaedic Surgery Sports Medicine
DX: M23.611 Other spontaneous disruption of anterior cruciate ligament of right knee (principal); S80.01XD Contusion of right knee, subsequent encounter; I80.9 Phlebitis and thrombophlebitis of unspecified site; S83.411D Sprain of medial collateral ligament of right knee, subsequent encounter; M23.211 Derangement of anterior horn of medial meniscus due to old tear or injury, right knee; S83.511D Sprain of anterior cruciate ligament of right knee, subsequent encounter; Z48.89 Encounter for other specified surgical aftercare; X58.XXXD Exposure to other specified factors, subsequent encounter

== ENCOUNTER → 2023-04-20 | Outpatient (CLI) | payer BC, OTHER ==
--- NOTE | 2023-04-21 09:06 | US ---
EXAMINATION TYPE: US thyroid st tissue head/neck DATE OF EXAM: 04/20/2023 COMPARISON: 02/07/2022 CLINICAL INDICATION: Female, 48 years old with history of E03.9, HYPOTHYROIDISM, UNSPECIFIED; Hypothy roidism on meds for years. GLAND SIZE: Right Lobe: 3.4 x 1.7 x 1.3 cm Overall Parenchyma: heterogenous Left Lobe: 2.7 x 1.3 x 1.4 cm Overall Parenchyma: heterogenous Isthmus Thickness: .3 cm NODULES RIGHT: # of nodules measured on right: 0 LEFT: # of nodules measured on left: 0 ISTHMUS: # of nodules measured in the isthmus: 0 Bilateral neck scanned, no evidence of lymphadenopathy. IMPRESSION: Diffuse glandular heterogeneity without discrete nodule. Correlate with thyroid function testing.
== END | disposition home or self-care (01) ==
LOC: RADUSWWP 16:10
PROVIDERS: ATTEND Family Medicine
DX: E03.9 Hypothyroidism, unspecified (principal)
CPT/HCPCS: 76536

== ENCOUNTER → 2024-08-06 | Outpatient (CLI) | payer BC, OTHER ==
--- NOTE | 2024-08-07 10:33 | MM ---
Reason for Exam: Screening (asymptomatic). Last mammogram was performed 12 year(s) and 9 month(s) ago. Patient History: Menarche at age 11. First Full-Term at age 20. Premenopausal. Last menstrual period: 08/03/2024 Risk Values: Rowena 5 year model risk: 0.7%. NCI Lifetime model risk: 7.5%. Prior Study Comparison: 11/06/2011 Bilateral MG screening mammo w CAD - 2, [facility]. Tissue Density: The breasts are heterogeneously dense, which may obscure small masses. Findings: Analyzed By CAD. There is no suspicious group of microcalcifications or new suspicious mass in either breast. Overall Assessment: Negative, BI-RAD 1 Management: Screening Mammogram of both breasts in 1 year. . Patient should continue monthly self-breast exams. A clinical breast exam by your physician is recommended on an annual basis. This exam should not preclude additional follow-up of suspicious palpable abnormalities. Note on Rowena scores and lifetime risk: 1. A Rowena score greater than 3% is considered moderate risk. If this is the case, consider specialist referral to assess eligibility for a risk reducing agent. 2. If overall lifetime risk for the development of breast cancer is 20% or higher, the patient may qualify for future screening with alternating mammogram and breast MRI. [facility], , 08/07/2024 10:30 AM. Electronically signed and approved by: Sanchez Mcgovern M.D. Radiologis
== END | disposition home or self-care (01) ==
LOC: RADMAMWWP 13:42
PROVIDERS: ATTEND Family Medicine
CPT/HCPCS: 77067